=== PATIENT | female | born 1955 | race Caucasian/White ===

== ENCOUNTER 2021-12-23 10:12 | Outpatient (CLI) | payer BC, SELFPAY ==
[2021-12-23 21:34] LABS: Albumin* 4.8 g/dL (3.3-5.0); Chloride* 102 mmol/L (96-114)
[2021-12-23 21:35] LABS: Potassium* 4.1 mmol/L (3.6-5.1); Sodium* 139 mmol/L (135-149)
[2021-12-23 21:37] LABS: Alkaline Phosphatase* 151 U/L (40-150); Aspartate Amino Transferase* 27 U/L (12-35); Bilirubin Total* 0.6 mg/dL (0.1-1.5); Blood Urea Nitrogen* 17 mg/dL (7-30); Calcium* 9.6 mg/dL (8.4-10.6); Carbon Dioxide* 29 mmol/L (20-32); Creatinine* 0.7 mg/dL (0.5-1.5); Estimated Glomerular Filt Rate 96 ml/min; Glucose* 96 mg/dL (60-115); Total Protein* 8.1 g/dL (6.0-8.3); Triglycerides* 280 mg/dL (40-149)
[2021-12-23 21:38] LABS: Alanine Aminotransferase* 30 U/L (4-35); HDL Cholesterol* 80 mg/dL (>=50)
[2021-12-23 21:45] LABS: Vitamin D 25 Hydroxy* 32 ng/mL (30-80)
[2021-12-23 22:03] LABS: Cholesterol* 373 mg/dL (90-199); LDL Cholesterol Calculated 237 mg/dL (<100)
[2021-12-23 22:55] LABS: Free T4 Free Thyroxine* 1.11 ng/dL (0.70-1.85)
== END 2021-12-23 10:13 | disposition home or self-care (01) ==
PROVIDERS: PCP Physician Assistant Medical; Visit Provider Physician Assistant Medical
DX: Z01.419 Encounter for gynecological examination (general) (routine) without abnormal findings (principal); E03.9 Hypothyroidism, unspecified; E55.9 Vitamin D deficiency, unspecified; I10 Essential (primary) hypertension; E78.5 Hyperlipidemia, unspecified
CPT/HCPCS: 80053; 80061; 82306; 84439; 84443

== ENCOUNTER 2022-02-21 17:30 | Emergency (ER) | payer SELFPAY ==
[2022-02-21 17:33] VITALS: BP 139/79; PULSE 75; RESP 18; TEMP 36.4; O2SAT 95; BMI 40.3
--- NOTE | 2022-02-21 17:54 | ED_ITS ---
HPI - General Adult General Date Seen: 02/21/22 Chief complaint: Ear/Nose/Throat Problem Stated complaint: left ear pain Time Seen by Provider: 02/21/22 17:34 Source: patient Mode of arrival: ambulatory Limitations: no limitations History of Present Illness HPI narrative: Patient is a 66-year-old woman who presents with gradually worsening left ear pain for the past several days. She notes some tenderness and difficulty hearing now as well. No drainage. She has not been taking anything for pain. No fevers. No other complaints. Related Data Home Medications Medication Instructions Recorded Confirmed cholecalciferol (vitamin D3) 50 2,000 unit PO .Bedtime 08/27/21 12/23/21 mcg (2,000 unit) tablet clonazepam 0.5 mg tablet 0.25 mg PO PRN 08/27/21 12/23/21 cyclosporine 0.05 % eye drops 1 drp ophthalmic (eye) BID 08/27/21 12/23/21 famotidine 20 mg tablet 20 mg PO .Bedtime 08/27/21 12/23/21 losartan 50 mg tablet 50 mg PO DAILY 08/27/21 12/23/21 Previous Rx's Medication Instructions Recorded celecoxib 200 mg capsule (Celebrex) 200 mg PO QDAY #90 caps 12/02/21 amlodipine 5 mg tablet 5 mg PO QDAY #90 tabs 02/04/22 levothyroxine 200 mcg tablet 200 mcg PO QDAY #90 tabs 02/05/22 sertraline 100 mg tablet 200 mg PO QDAY #180 tabs 02/05/22 rosuvastatin 10 mg tablet 10 mg PO .qhs #90 tabs 02/10/22 Allergies Allergy/AdvReac Type Severity Reaction Status Date / Time NSAIDS (Non-Steroidal Allergy Severe Hx of Verified 12/23/21 10:07 Anti-Inflamma bypass PFSH PFS Medical History Abscess of prepatellar region History of fracture Surgical History History of arthroplasty of right knee History of bilateral breast reduction surgery History of History of section History of cholecystectomy History of colonoscopy History of left hip replacement 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 Family History Father Prostate cancer, Onset Age: 93 Other Stroke Social History Narrative: Not current smoker Smoking Status: Former smoker Do you use any of these nicotine containing products: None Second hand tobacco smoke exposure: No How often do you have a drink containing alcohol: monthly or less How many standard drinks containing alcohol do you have on a typical day: 1 or 2 AUDIT-C Alcohol total score: 1 Non-prescribed substance use: denies use Little interest or pleasure in doing things: not at all Feeling down, depressed, or hopeless: not at all Exam Narrative: Exam Narrative: Vital signs reviewed In general, an alert, nontoxic woman. She looks comfortable. Eyes: Sclera clear. ENT: Nares clear. Bilateral canals are narrow, but there is no evidence of erythema or edema or debris. The right TM is normal. On the left, there is erythema and landmarks are not visualized. Neck: Supple without adenopathy or stridor. Skin: Warm and dry, well perfused Const: Vital Signs, click to edit/add: Vital Signs - 24 hr 02/21/22 17:33 Temperature 97.6 F Pulse Rate [Pulse Oximeter] 75 Respiratory Rate 18 Blood Pressure [Ri ght Upper Arm] 139/79 Pulse Oximetry 95 Oxygen Delivery Me thod Room Air Documenting provider has reviewed patient's vital signs: yes Course Course Hospital Course: Patient tells me she has a history of prior ear problems which her primary doctor has treated with drops, she says they were not antibiotic drops. She looked through her phone to try and figure out what kind of drops were used previously but could not find it. I am not entirely sure what was treated previously but did discuss with her that today I do not see any evidence of otitis externa, it does appear that she has an otitis media on that side. Would recommend treating that with antibiotics as it has been getting worse over the past several days. Anticipate this will improve over the next 24-48 hours. This should improve her tinnitus and hearing as well, but if the symptoms are persistent she should follow up with ENT. For pain, recommend Tylenol in addition to this celecoxib that she takes. She had told me that she could take ibuprofen but given that she is status post gastric bypass I would recommend against that and instead stick with Tylenol. Return at any time for acute worsening such as high fevers, severe uncontrolled pain. Vital Signs Vital signs: Initial Vital Signs Temperature 97.6 F 02/21/22 17:33 Temperature Source Temporal Artery Scan 02/21/22 17:33 Pulse Rate 75 02/21/22 17:33 Respiratory Rate 18 02/21/22 17:33 Blood Pressure 139/79 02/21/22 17:33 Blood Pressure Mean 99 02/21/22 17:33 Blood Pressure Position Sitting 02/21/22 17:33 Pulse Oximetry 95 02/21/22 17:33 Oxygen Delivery Method 02/21/22 17:33 Vital Signs Temperature 97.6 F 02/21/22 17:33 Pulse Rate 75 02/21/22 17:33 Respiratory Rate 18 02/21/22 17:33 Blood Pressure 139/79 02/21/22 17:33 Pulse Oximetry 95 02/21/22 17:33 Oxygen Delivery Method 02/21/22 17:33 Temperature 97.6 F 02/21/22 17:33 Pulse Rate 75 02/21/22 17:33 Respiratory Rate 18 02/21/22 17:33 Blood Pressure 139/79 02/21/22 17:33 Pulse Oximetry 95 02/21/22 17:33 Oxygen Delivery Method 02/21/22 17:33 Discharge Plan Discharge Clinical Impression: Otitis media Patient Disposition: Home, Self-Care Condition: Stable Instructions: Ear Infection (ED) Additional Instructions: Tylenol in addition to your celecoxib; ibuprofen is likely not the best choice status post gastric bypass. Antibiotic as ordered. Anticipate improvement over the next couple of days. See your primary doctor if not improving in 2-3 days. Return at any time for acute worsening. Prescriptions: No Action clonazepam 0.5 mg tablet 0.25 mg PO PRN Rx Instructions: 1/2 to 1 tablet the night prior to procedures. losartan 50 mg tablet 50 mg PO DAILY famotidine 20 mg tablet 20 mg PO .Bedtime cholecalciferol (vitamin D3) 50 mcg (2,000 unit) tablet 2,000 unit PO .Bedtime cyclosporine 0.05 % drops 1 drp ophthalmic (eye) BID celecoxib [Celebrex] 200 mg capsule 200 mg PO QDAY Qty: 90 0RF amlodipine 5 mg tablet 5 mg PO QDAY Qty: 90 3RF sertraline 100 mg tablet 200 mg PO QDAY Qty: 180 1RF levothyroxine 200 mcg tablet 200 mcg PO QDAY Qty: 90 0RF rosuvastatin 10 mg tablet 10 mg PO .qhs Qty: 90 0RF Follow Up/Referrals: Bharati Carey PA-C [Primary Care Provider] - Stand Alone Forms: [employer] Info Instructions
== END 2022-02-21 18:02 | disposition home or self-care (01) ==
LOC: ED 17:58
PROVIDERS: Emergency Provider Emergency Medicine; PCP Physician Assistant Medical
DX: H66.92 Otitis media, unspecified, left ear (principal)
CPT/HCPCS: 99283; 99284

== ENCOUNTER 2022-05-19 11:07 | Outpatient (CLI) | payer MEDICARE, SELFPAY ==
--- OUTSIDE RECORDS SUMMARY | 2022-05-21 00:32 | XMS_ITS | Continuity of Care Document ---
Author Name Unknown Organization [facility] Address [address] [address] [place] [address] Phone Care Team Providers Care High School Science Teacher Name Role Phone Link Ashok MORTON Unavailable Unavailable Allergies, Adverse Reactions, Alerts Substance Reaction Status Criticality No Known Allergies Active No Inform ation Medications Medication Instructions Dosage Effective Dates (start - stop) Status Comments levothyroxine 25 mcg tablet take 1 tablet by oral route every day 25 MCG - Active sertraline 50 mg tablet take 3 tablet by oral route every day 150 MG - Active Procedures Procedure Date Colonoscopy W/Submucosal Injection Colonoscopy Flex; W/bx 1/mx Level Iv-surg Path Gross/micro 16 Immunocytochemistry, Each Antibody Colonoscopy Flex; W/remov Les- 11 Level Iv-surg Path Gross/micro 11 Advance Directives Directive Yes / No Effective Date File Name No Information Encounters Encounter Description Practice Location Reason(s) For Visit Diagnoses Date Provider Providers Copied on Encounter [facility], [address] [address], [place], [place], [id number], [place] tel:[phone] [facility] No Information 6 Link MD Pulido. [address] [facility], [facility] [address], [place], [place], [id number] , [place]. [phone] Referring Provider: Referral Self. [facility], [address] [address], [facility] [place], [id number], [place] tel:[phone] Brice [facility] Colon polypDiverticulosis of colon without hemorrhageEncounter for screening for malignant neoplasm of colonBenign neoplasm of transverse colonPersonal history of colonic polypsVascular disorder of intestine, unspecifiedVascular disorder of intestine, unspecified 6 Maged Pulido. [address] [facility], [facility] [address], [place], [place], [id number] , [place]. [phone] Referring Provider: [place], [address] [place], [address]. tel:[phone] [facility], [address] [address], [place], [place], [id number], [place] tel:[phone] [place] [facility] Polyp-intes/rect/st om-unc BehColon Cancer ScreeningDiverticul osis Of ColonBenign Neoplasm Lg Bowel Aguilar Cavazos . [address] [facility], [facility] [address], [place], [place], [address] , [place]. [phone] Family History Family Member Type Diagnosis Age At Onset Daughter Problem (finding) Alive and well Brother Problem (finding) Alive and well Sister Problem (finding) Alive and well Father Problem (finding) prostate cancer Mother Problem (finding) Thyroid disorder Son Problem (finding) Alive and well Mother Problem (finding) Lymphoma Payers Payer name Insurance type Covered democrat ID Authoriza tion(s) [employer] [facility] [id number] Social History Type Description Quantity Date Captured Comments Alcohol Use Details Unknown Caffeine Use Details Unknown Tobacco Use Status Smoking Status No Information Sex Female Chief Complaint And Reason For Visit No Information Reason For Referral Reason For Referral No Information Plan Of Treatment Date Type Action Status Referral Ordered: Colonoscopy Appointment date/timeframe: -today ordered History Of Present Illness Encounter Date Complaint History Of Prese nt Illness No Information Functional Status Date Functional Assessmen t No Information Instructions Date Instruction Additional Infor mation High Fiber Diet Related to Diver ticulosis of colon without hemorrhage Diverticulosis/Diverticulitis Re lated to Diverticulosis of colon without hemorrhage Colon Cancer Prevention Related to Diverticulosis of colon without hemorrhage Colon Polyps Related to Diver ticulosis of colon without hemorrhage NSAIDS List Related to Diver ticulosis of colon without hemorrhage Colonoscopy Assessments Type Assessment Date No Information Patient Care Teams Name Effective Dates (start - stop) Status Members No Information
== END 2022-05-19 11:08 | disposition home or self-care (01) ==
LOC: NFLDREF 05-21 00:29
PROVIDERS: PCP Physician Assistant Medical; Referring Provider Physician Assistant Medical; Visit Provider Physician Assistant Medical
DX: E78.2 Mixed hyperlipidemia (principal); E03.9 Hypothyroidism, unspecified
CPT/HCPCS: 80061; 80076; 84443

== ENCOUNTER 2023-06-07 08:15 | Outpatient (CLI) | payer MEDICARE, SELFPAY | END 2023-06-07 08:16 | disposition home or self-care (01) | LOC: NFLDREF 06-08 06:30 | PROVIDERS: PCP Physician Assistant Medical; Referring Provider Physician Assistant Medical; Visit Provider Physician Assistant Medical | DX: E03.9 Hypothyroidism, unspecified (principal); E78.2 Mixed hyperlipidemia; I10 Essential (primary) hypertension | CPT/HCPCS: 80053; 80061; 84443 ==

== ENCOUNTER 2023-06-18 00:14 | Emergency (ER) | payer MEDICARE, SELFPAY ==
[2023-06-18 00:17] VITALS: BP 157/68; PULSE 79; RESP 18; TEMP 36.7; O2SAT 93; BMI 39.7
[2023-06-18 00:26] VITALS: PULSE 78; O2SAT 94
--- NOTE | 2023-06-18 00:28 | ED_ITS ---
HPI - Dental/Oral General Chief complaint: Dental/Oral/Mouth Injury/Pain Stated complaint: abscessed tooth - L side bottom Time Seen by Provider: 06/18/23 00:28 History of Present Illness HPI Narrative: Patient is a 67-year-old woman who comes in today with severe pain in her premolar on the left lower plate. She has had known history of dental issues and has an appointment with her dentist on Tuesday. The pain and swelling is becoming more severe. She has had no nausea vomiting fevers chills night sweats chest pain shortness a breath orthopnea or PND. Patient is not penicillin allergic. Related Data Home Medications Medication Instructions Recorded Confirmed cholecalciferol (vitamin D3) 50 2,000 unit PO .Bedtime 08/27/21 06/18/23 mcg (2,000 unit) tablet cyclosporine 0.05 % eye drops 1 drp ophthalmic (eye) BID 08/27/21 06/18/23 famotidine 20 mg tablet 20 mg PO .Bedtime 08/27/21 06/18/23 Previous Rx's Medication Instructions Recorded amlodipine 5 mg tablet 5 mg PO QDAY #90 tabs 06/16/23 celecoxib 200 mg capsule 200 mg PO DAILY #90 caps 06/16/23 clonazepam 0.5 mg tablet 0.25 mg (1/2 x 0.5 mg) PO QHS PRN 06/16/23 insomnia #30 tabs levothyroxine 200 mcg tablet 200 mcg PO DAILY #90 tabs 06/16/23 losartan 50 mg tablet 50 mg PO DAILY #90 tabs 06/16/23 rosuvastatin 20 mg tablet 20 mg PO QHS #90 tabs 06/16/23 sertraline 100 mg tablet 200 mg (2 x 100 mg) PO QDAY #180 06/16/23 tabs trazodone 50 mg tablet 50 - 150 mg (1 - 3 x 50 mg) PO QHS 06/16/23 PRN sleep #180 tabs Allergies Allergy/AdvReac Type Severity Reaction Status Date / Time NSAIDS (Non-Steroidal Allergy Severe Hx of Verified 06/18/23 00:21 Anti-Inflamma bypass Review of Systems Status of ROS: Reports: 10 or more systems reviewed and unremarkable except as noted in History and below [facility] Medical History Abscess of prepatellar region ?L02.419 - Cutaneous abscess of limb, unspecified (ICD-10) History of fracture ?Z87.81 - Personal history of (healed) traumatic fracture (ICD-10) Surgical History History of left knee surgery (04/09/20) ?Z98.890 - Other specified postprocedural states (ICD-10) H/O arthroscopy of right knee (08/06/20) ?Z98.890 - Other specified postprocedural states (ICD-10) History of colonoscopy ?Z98.890 - Other specified postprocedural states (ICD-10) History of section ?Z98.891 - History of uterine scar from previous surgery (ICD-10) 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) ?Z96.642 - Presence of left artificial hip joint (ICD-10) History of arthroplasty of right knee (12/22/20) ?Z96.651 - Presence of right artificial knee joint (ICD-10) History of sleeve gastrectomy ?Z90.3 - Acquired absence of stomach [part of] (ICD-10) History of bilateral breast reduction surgery ?Z98.890 - Other specified postprocedural states (ICD-10) History of cholecystectomy ?Z90.49 - Acquired absence of other specified parts of digestive tract (ICD- 10) Family History Father Prostate cancer, Onset Age: 93 Other Stroke Social History Narrative: Not current smoker What is your current living situation?: I presently have a place to live Problems where you live: no known problems In the past 12 months, utilities in danger of being shut off: no In past 12 months, lack of transportation kept you from medical appts, meetings, work, or getting things needed for daily living: no In the past 12 mos, have been you worried that your food would run out before you had money to buy more?: never true In the past 12 mos, the food you bought just didn't last and you didn't have money to buy more?: never true Smoking Status: Former smoker Do you use any of these nicotine containing products: None Second hand tobacco smoke exposure: No How often do you have a drink containing alcohol: never AUDIT-C Alcohol total score: 0 Non-prescribed substance use: denies use How often does anyone, including family, friends and others, physically hurt you : never How often does anyone, including family, friends and others, insult or talk down to you: never How often does anyone, including family, friends and others, threaten you with harm: never How often does anyone, including family, friends and others, scream or curse at you: never Little interest or pleasure in doing things: several days Feeling down, depressed, or hopeless: several days Exam Narrative: Exam Narrative: EXAM GENERAL: Patient appears comfortable and well. Mildly limited dentition. EYES: No scleral icterus. ENT: Tympanic membranes and oropharynx normal. THYROID: no thyroid nodules or thyromegaly. LYMPH: No supraclavicular or cervical lymphadenopathy. SKIN: Visible skin seen during exam normal or with benign process only. EXT: No dependent lower extremity pedal edema. HEART: Regular rate and rhythm with no murmurs, rubs, or gallops. LUNGS: Clear to auscultation bilaterally with no crackles or wheezes. ABD: Soft, non tender, non distended. PSYCH: Good eye contact, speech is not pressured. Const: Vital Signs, click to edit/add: Vital Signs - 24 hr 06/18/23 00:17 Temperature 98.1 F Pulse Rate [Pulse Oximeter] 79 Respiratory Rate 18 Blood Pressure [Le ft Upper Arm] 157/68 H Pulse Oximetry 93 Oxygen Delivery Me thod Room Air Course Course ED Course: Patient seen and examined. Vital Signs Vital signs: Initial Vital Signs Temperature 98.1 F 06/18/23 00:17 Temperature Source Temporal Artery Scan 06/18/23 00:17 Pulse Rate 79 06/18/23 00:17 Respiratory Rate 18 06/18/23 00:17 Blood Pressure 157/68 H 06/18/23 00:17 Blood Pressure Mean 97 06/18/23 00:17 Blood Pressure Position Sitting 06/18/23 00:17 Pulse Oximetry 93 06/18/23 00:17 Oxygen Delivery Method Room Air 06/18/23 00:17 Vital Signs Temperature 98.1 F 06/18/23 00:17 Pulse Rate 79 06/18/23 00:17 Respiratory Rate 18 06/18/23 00:17 Blood Pressure 157/68 H 06/18/23 00:17 Pulse Oximetry 93 06/18/23 00:17 Oxygen Delivery Method Room Air 06/18/23 00:17 Temperature 98.1 F 06/18/23 00:17 Pulse Rate 79 06/18/23 00:17 Respiratory Rate 18 06/18/23 00:17 Blood Pressure 157/68 H 06/18/23 00:17 Pulse Oximetry 93 06/18/23 00:17 Oxygen Delivery Method Room Air 06/18/23 00:17 MDM - Dental/Oral MDM Narrative Medical decision making narrative: Patient is a 67-year-old woman comes in with dental pain and swelling around the premolar on the left lower plate. She has what appears to be dental infection and does have does appointment on Tuesday 2 days. I did treated with amoxicillin verify there tetanus shot is up-to-date. She will continue current medications follow-up with her primary physician as needed. She will Also see her dentist on Tuesday. Discharge Plan Discharge Clinical Impression: Pain, dental Patient Disposition: Home, Self-Care Condition: Stable Instructions: Toothache (ED) Additional Instructions: Amoxicillin as directed Tylenol Motrin Rest Fluids Follow-up with your dentist as described. Activity Level: No Restrictions Discharge Diet: Regular Prescriptions: No Action levothyroxine 200 mcg tablet 200 mcg PO DAILY Qty: 90 3RF losartan 50 mg tablet 50 mg PO DAILY Qty: 90 3RF sertraline 100 mg tablet 200 mg PO QDAY Qty: 180 3RF trazodone 50 mg tablet 50 - 150 mg PO QHS PRN (Reason: sleep) Qty: 180 1RF amlodipine 5 mg tablet 5 mg PO QDAY Qty: 90 3RF clonazepam 0.5 mg tablet 0.25 mg PO QHS PRN (Reason: insomnia) Qty: 30 0RF celecoxib 200 mg capsule 200 mg PO DAILY Qty: 90 3RF rosuvastatin 20 mg tablet 20 mg PO QHS Qty: 90 3RF famotidine 20 mg tablet 20 mg PO .Bedtime cholecalciferol (vitamin D3) 50 mcg (2,000 unit) tablet 2,000 unit PO .Bedtime cyclosporine 0.05 % drops 1 drp ophthalmic (eye) BID Follow Up/Referrals: Bharati Carey PA-C [Primary Care Provider] - Stand Alone Forms: [employer] Info Instructions
[2023-06-18 00:30] VITALS: PULSE 76; O2SAT 93
[2023-06-18 00:32] VITALS: BP 138/82; RESP 18
--- OUTSIDE RECORDS SUMMARY | 2023-06-18 00:35 | XMS_ITS | Clinical Summary ---
Author Name Unknown Organization [facility] Address [address] [address] Phone Care Team Providers Care Sheeting Puller Name Role Phone Unavailable Primary Care Provider Unavailabl e Allergies No known active allergies Medications Medication Sig Dispensed Refills Start Date End Date Status amLODIPine (Norvasc) 5 MG tablet Take 5 mg by mouth one time a day. 09/26/2022 Active calcium carbonate (Calcium 600) 600 MG tablet Take by mouth. Active Cholecalciferol 50 MCG (2000 UT) capsule Take by mouth. Active clonazePAM (KlonoPIN) 0.5 MG tablet TAKE 0.5 TABS BY MOUTH EVERY DAY AT BEDTIME NEEDED FOR INSOMNIA 09/27/2022 Active levothyroxine (Synthroid) 200 MCG tablet Take 200 mcg by mouth one time a day. 06/29/2022 Active losartan (Cozaar) 50 MG tablet Take 50 mg by mouth one time a day. 09/26/2022 Active sertraline (Zoloft) 100 MG tablet Take 200 mg by mouth one time a day. 09/26/2022 Active clonazePAM (KlonoPIN) 1 MG tablet Take 1 Tablet by mouth three times a day as needed. Active levothyroxine (Synthroid) 200 MCG tablet Take by mouth. Active sertraline (Zoloft) 100 MG tablet Take 1.5 Tablets by mouth one time a day. Active ibuprofen (Motrin) 800 MG tablet Take 1 Tablet by mouth every eight hours as needed for Pain. Administer with food. 40 Tablet 10/29/2022 Active Active Problems No known active problems Surgical History Surgery Date Site/Laterality Comments CHOLECYSTECTOMY FOOT SURGERY BREAST REDUCTION SURGERY SECTION Description: x 2 Medical History Medical History Date Comments History of hyperthyroidism 10/29/2015 Annot ation - [id number]: Radioactive Iodine Family History Medical History Relation Comments Myocardial Infarction Father [employer] TW Hypertension Mother [employer] TW Stroke Mother [employer] TW Hypertension Sister 1 RV [employer] TW Musculo-skeletal Disease Sister 2 RV [employer]s TW - Problem: Family history of Joint problem Relation Status Comments Father Mother Sister 1 Sister 2 Social History Tobacco Use Types Packs/Day Years Used Date Smoking Tobacco: Former Smokeless Tobacco: Never Tobacco Cessation:Counseling Given: Not Answered Alcohol Use Standard Drinks/Week Comments Never 0 (1 standard drink = 0.6 oz pur e alcohol) Sex and Gender Information Value Date Recorded Sex Assigned at Not on file Gender Identity Not on file Sexual Orientation Not on file Job Start Date Occupation Industry Not on file Not on file Not on file Obstetrics History Last Filed Vital Signs Vital Sign Reading Time Taken Comments Blood Pressure 132/84 10/29/2022 3:34 PM CDT Pulse 67 10/29/2022 3:34 PM CDT Temperature 36.4 ??C (97.6 ??F) 10/29/2022 3:34 PM CD T Respiratory Rate 18 10/29/2022 3:34 PM CDT Oxygen Saturation 93% 10/29/2022 3:34 PM CDT Inhaled Oxygen Concentration - - Weight 104.3 kg (230 lb) 10/29/2022 3:34 PM CDT Height 160 cm (5' 3) 10/30/2015 12:38 PM CDT Body Mass Index 40.74 10/30/2015 12:38 PM CDT Plan of Treatment Health Maintenance Due Date Last Done Comments CT Colonography 1955 Cologuard 1955 Colonoscopy 1955 Colorectal Cancer Screening 1955 FIT/FOBT 1955 MAMMO,SCREEN 1956 Sigmoidoscopy 1955 PERTUSSIS (Standing Order) 12/22/1975 TETANUS (Standing Order) 12/22/1975 Shingrix (Zoster recombinant ) vaccine (Standing Order) (1 of 2) 2006 RSV Vaccination (60+ yrs) (Abrysvo/Arexvy) (1 - 1-dose 60+ series) 2016 DXA,FEMALES AGE 65 OR GREATER 2021 Pneumococcal Vaccine: 65+ yr s (Standing Order) (1 of 1 - PCV) 2021 COVID-19 Vaccine (2022-2 4 season) 2022 Influenza Vaccine Seasonal (Standing Order) (#1) 2022 HPV Vaccine (Standing Order) Aged Out No longer eligible based on patient's age to complete this topic Hepatitis B Vaccine (Standin g Order) Aged Out No longer eligible b ased on patient's age to complete this topic Gabby Acosta Personal/Family Self 1955 [place] [address]
--- OUTSIDE RECORDS SUMMARY | 2023-06-18 00:36 | XMS_ITS | Encounter Summary ---
Author Name Unknown Organization [facility] Address [address] [place] [address] Care Team Providers Care Centrifugal Spinner Name Role Phone Kathia Forbes MD Primary Care Provider [phone] Benita Boss APRN [facility] Primary Care Provi manuel Monserrat Carey MD Primary Care Provider [phone] Encounter Details Date Type Department Care Team (Late st Contact Info) Description 06/07/2011 MyC Medical Advice [address] [address] Kathia Forbes MD [address] [place] [phone] Social History Tobacco Use Types Packs/Day Years Used Date Smoking Tobacco: Former Cigarettes Q uit: 04/08/2011 Smokeless Tobacco: Never Alcohol Use Standard Drinks/Week Comments No 0 (1 standard drink = 0.6 oz pur e alcohol) Sex and Gender Information Value Date Recorded Sex Assigned at Not on file Gender Identity Not on file Sexual Orientation Not on file documented as of this encounter Plan of Treatment Not on file documented as of this encounter Visit Diagnoses Not on filedocumented in this encounter Care Teams Centrifugal Spinner Relationship Specialty Start Date End Date Kathia Forbes MD PCP - General Family Practice 04/30/10 11/27/13 Benita Boss APRN CNP PCP - General Nurse Practitioner - Family 11/28/13 [address] [place] [address] [place] [address] PCP - General 12/15/17 documented as of this encounter
--- OUTSIDE RECORDS SUMMARY | 2023-06-18 00:36 | XMS_ITS | Encounter Summary ---
Author Name Unknown Organization [place] Address [address] [place] [address] Care Team Providers Care Fish Rod Maker Name Role Phone Kathia Forbes MD Primary Care Provider [phone] Benita Boss APRN [facility] Primary Care Provi manuel Monserrat Carey MD Primary Care Provider [phone] Encounter Details Date Type Department Care Team (Late st Contact Info) Description 12/22/2010 MyC Medical Advice [address] [address] Kathia Forbes MD [address] [place] [address] [phone] Social History Tobacco Use Types Packs/Day Years Used Date Smoking Tobacco: Some Days Cigarettes Smokeless Tobacco: Never Alcohol Use Standard Drinks/Week [...] on filedocumented in this encounter Care Teams Fish Rod Maker Relationship Specialty Start Date End Date Kathia Forbes MD PCP - General Family Practice 04/30/10 11/27/13 Benita Boss APRN [facility] PCP - General Nurse Practitioner - Family 11/28/13 1 [place] [address] [place] [address] PCP - General 12/15/17 documented as of this encounter
--- OUTSIDE RECORDS SUMMARY | 2023-06-18 00:36 | XMS_ITS | Encounter Summary ---
Author Name Unknown Organization [place] Address [address] [place] [address] Care Team Providers Care Loan Underwriter Name Role Phone Kathia Forbes MD Primary Care Provider [phone] Benita Boss APRN [facility] Primary Care Provi manuel Monserrat Carey MD Primary Care Provider [phone] Reason for Visit * Reason Onset Date Comments MyChart Communication 04/23/2012 Re: Synthr oid 150 mcg Encounter Details Date Type Department Care Team (Latest Contact Info) Description 04/23/2012 MyC Medical Advice [address] [address] Kathia Forbes MD [address] [place] [address] MyChart Communication (Re: Synthroid 150 mcg) Social History Tobacco Use Types Packs/Day Years [...] on filedocumented in this encounter Care Teams Loan Underwriter Relationship Specialty Start Date End Date Kathia Forbes MD PCP - General Family Practice 04/30/10 11/27/13 Benita Boss APRN PRODUCT DISTRIBUTION SPECIALIST PCP - General Nurse Practitioner - Family 11/28/13 1 [place] [address] [place] [address] PCP - General 12/15/17 documented as of this encounter
--- OUTSIDE RECORDS SUMMARY | 2023-06-18 00:36 | XMS_ITS | Encounter Summary ---
Author Name Unknown Organization [place] Address [facility] [place] [address] Care Team Providers Care Household Worker Name Role Phone Kathia Forbes MD Primary Care Provider [phone] Benita Boss APRN [facility] Primary Care Provi manuel Monserrat Carey MD Primary Care Provider [phone] Reason for Visit * Reason Onset Date Comments MyChart Communication 11/06/2012 Encounter Details Date Type Department Care Team (Latest Contact Info) Description 11/06/2012 MyC Medical Advice [address] [address] Kathia Forbes MD [address] [place] [address] MyChart Communication Social History Tobacco Use Types Packs/Day Years [...] on filedocumented in this encounter Care Teams Household Worker Relationship Specialty Start Date End Date Kathia Forbes MD PCP - General Family Practice 04/30/10 11/27/13 Benita Boss APRN CNP PCP - General Nurse Practitioner - Family 11/28/13 1 [place] [address] [place] [address] PCP - General 12/15/17 documented as of this encounter
--- OUTSIDE RECORDS SUMMARY | 2023-06-18 00:36 | XMS_ITS | Encounter Summary ---
Author Name Unknown Organization [place] Address [address] [place] [address] Care Team Providers Care Needle Valve Operator Name Role Phone Benita Boss APRN, CNP Primary Care Provi manuel Monserrat Carey MD Primary Care Provider [phone] Encounter Details Date Type Department Care Team (Late st Contact Info) Description 06/26/2015 MyC Medical Advice [address] [address] Shayy Powers APRN [facility] [address] [address] [place] [address] Social History Tobacco Use Types Packs/Day Years Used Date Smoking Tobacco: Former Cigarettes 0.8 38 0 09/11/1974 - 09/11/2012 Smokeless Tobacco: Never Alcohol Use Standard Drinks/Week [...] Diagnoses Not on filedocumented in this encounter Additional Health Concerns Assessment Noted Time PHQ-9 Depression Total Score: 1 06/28/19 16 7:17 AM CDT documented as of this encounter Care Teams Needle Valve Operator Relationship Specialty Start Date End Date Benita Boss APRN [facility] PCP - General Nurse Practitioner - Family 11/28/13 1 [place] [address] [place] [address] PCP - General 12/15/17 documented as of this encounter
--- OUTSIDE RECORDS SUMMARY | 2023-06-18 00:36 | XMS_ITS | Encounter Summary ---
Author Name Unknown Organization [place] Address [address] [place] [address] Care Team Providers Care Artificial Breast Fabricator Name Role Phone Kathia Forbes MD Primary Care Provider [phone] Benita Boss APRN [facility] Primary Care Provi manuel Monserrat Carey MD Primary Care Provider [phone] Encounter Details Date Type Department Care Team (Late st Contact Info) Description 06/07/2012 MyC Medical Advice [address] [address] Kathia Forbes MD [address] [place] [address] [phone] Social History Tobacco Use Types Packs/Day Years [...] on filedocumented in this encounter Care Teams Artificial Breast Fabricator Relationship Specialty Start Date End Date Kathia Forbes MD PCP - General Family Practice 04/30/10 11/27/13 Benita Boss APRN CNP PCP - General Nurse Practitioner - Family 11/28/13 1 [place] [address] [place] [address] PCP - General 12/15/17 documented as of this encounter
--- OUTSIDE RECORDS SUMMARY | 2023-06-18 00:36 | XMS_ITS | Encounter Summary ---
Author Name Unknown Organization [place] Address [address] [place] [address] Care Team Providers Care Copy Center Associate Name Role Phone Kathia Forbes MD Primary Care Provider [phone] Benita Boss APRN [facility] Primary Care Provi manuel Monserrat Carey MD Primary Care Provider [phone] Encounter Details Date Type Department Care Team (Late st Contact Info) Description 12/02/2010 MyC Medical Advice [address] [address] Kathia Forbes MD [address] [place] [address] [phone] Social History Tobacco Use Types Packs/Day Years [...] on filedocumented in this encounter Care Teams Copy Center Associate Relationship Specialty Start Date End Date Kathia Forbes MD PCP - General Family Practice 04/30/10 11/27/13 Benita Boss APRN [facility] PCP - General Nurse Practitioner - Family 11/28/13 1 [place] [address] [place] [address] PCP - General 12/15/17 documented as of this encounter
--- OUTSIDE RECORDS SUMMARY | 2023-06-18 00:36 | XMS_ITS | Clinical Summary ---
Author Name Unknown Organization [facility] Address [address] [place] [address] Care Team Providers Care Sealer Operator Name Role Phone Unassigned, Provider Primary Care Provider Unava ilable Source Comments You are receiving this document as you are listed as the primary care provider,follow-up provider, or the patient has been referred to you for consultation.This is in compliance with the Medicare andThe [facility] EHR Incentive Program,which states Providers who transition their patient to another setting of careor provider of care or refers their patient to another provider of care shouldprovide summary care record for each transition of care or referral. [facility] Allergies No known active allergies Medications Medication Sig Dispensed Refills Start Date End Date Status levothyroxine (SYNTHROID) 25 MCG tablet Take 1 tablet by mouth daily (every 24 hours). 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 Start 2 days before malarial mosquito exposure, daily while there, and continue for 7 days after leaving. 17 Tablet 01/26/2019 Active azithromycin (ZITHROMAX) 500 MG tabletIndications :Counseling for travel Take 1 tab daily for 3 days as needed for severe travelers diarrhea. 3 Tablet 01/26/2019 Active Immunizations Name Administration Dates Next Due Chicken Pox - History of Illness 1966 Flu Vac (3+ yrs) 11/27/2010,04/29/2010 Flu Vac Preserv Free (3+yrs) 01/14/2009 HepA Adult (19+ yrs) 01/26/2019 Influenza IIV3 (Trivalent) F jo ann Highdose, 65+ Yrs (76663) 01/26/2019 Influenza IIV4 (Quadrivalent ) 0.5mL (04051) 12/31/2016,02/10/2016,12/31/2014, 013 MCV4 Eugenia 2m.+ (two vial) 01/26/2019 PPSV23 (Pneumovax) 08/31/2011,01/14/2009 Tdap 04/29/2010 Typhoid (Typhim Vi, IM) 01/26/2019 YF (Yellow Fever) 01/26/2019 Zoster (Zostavax) 05/28/2011 Social History Tobacco Use Types Packs/Day Years Used Date Smoking Tobacco: Never Assessed Sex and Gender Information Value Date Recorded Sex Assigned at Not on file Gender Identity Not on file Sexual Orientation Not on file Plan of Treatment Health Maintenance Due Date Last Done Comments Colon Cancer Screening Plan Due 1955 Hep C Screening (Preventive Services) 1955 Mammogram 1955 Adult Preventive Visit 1974 Cholesterol 2001 Zoster/Shingles (2 of 3) 07/23/2011 05/28/2011 MCV4 (2 - Risk start 2-23 months series) 04/20/2019 01/26/2019 HepA (2 of 2 - Risk 2-dose series) 07/28/2019 01/26/2019 DTaP/Tdap/Td (2 - Tdap) 04/29/2020 04/29/2010 Pneumococcal 65+ Yrs (2 - PCV) 2021 08/31/2011, 01/14/2009 COVID-19 Vaccine (3 - 2022- season) 2022 06/21/2020, 05/31/2020 Influenza (Season Ended) 2023 020, 01/26/2019, 12/31/2016, Additional history exists HepB Aged Out No longer eligi ble based on patient's age to complete this topic Hib Aged Out No longer eligi ble based on patient's age to complete this topic IPV (Polio) Aged Out No longer eligi ble based on patient's age to complete this topic Care Teams Sealer Operator Relationship Specialty Start Date End Date Unassigned, Provider [address] [place] [address] PCP - General 07/26/00
--- OUTSIDE RECORDS SUMMARY | 2023-06-18 00:36 | XMS_ITS | Encounter Summary ---
Author Name Unknown Organization [place] Address [address] [place] [address] Care Team Providers Care Commercial Lines Account Assistant Name Role Phone Kathia Forbes MD Primary Care Provider [phone] Benita Boss APRN [facility] Primary Care Provi manuel Monserrat Carey MD Primary Care Provider [phone] Encounter Details Date Type Department Care Team (Late st Contact Info) Description 10/25/2012 MyC Medical Advice [address] [address] Kathia Forbes MD [address] [place] [address] [phone] Social History Tobacco Use Types Packs/Day Years [...] on filedocumented in this encounter Care Teams Commercial Lines Account Assistant Relationship Specialty Start Date End Date Kathia Forbes MD PCP - General Family Practice 04/30/10 11/27/13 Benita Boss APRN CNP PCP - General Nurse Practitioner - Family 11/28/13 1 [place] [address] [place] [address] PCP - General 12/15/17 documented as of this encounter
--- OUTSIDE RECORDS SUMMARY | 2023-06-18 00:36 | XMS_ITS | Encounter Summary ---
Author Name Unknown Organization [place] Address [facility] [place] [address] Care Team Providers Care Button Tacker Name Role Phone Kathia Forbes MD Primary Care Provider [phone] Benita Boss APRN [facility] Primary Care Provi manuel Monserrat Carey MD Primary Care Provider [phone] Reason for Visit * Reason Onset Date Comments MyChart Communication 05/05/2011 TSH Encounter Details Date Type Department Care Team (Latest Contact Info) Description 05/05/2011 MyC Medical Advice [address] [address] Kathia Forbes MD [address] [place] [phone] MyChart Communication (TSH) Social History Tobacco Use Types Packs/Day Years [...] on filedocumented in this encounter Care Teams Button Tacker Relationship Specialty Start Date End Date Kathia Forbes MD PCP - General Family Practice 04/30/10 11/27/13 Benita Boss APRN CNP PCP - General Nurse Practitioner - Family 11/28/13 1 [place] [address] [place] [address] PCP - General 12/15/17 documented as of this encounter
--- OUTSIDE RECORDS SUMMARY | 2023-06-18 00:36 | XMS_ITS | Encounter Summary ---
Author Name Unknown Organization [place] Address [address] [place] [address] Care Team Providers Care Volcanology Teacher Name Role Phone Monserrat Carye MD Primary Care Provider [phone] Encounter Details Date Type Department Care Team (Late st Contact Info) Description 02/16/2016 MyC Medical Advice [facility] [address] [place] [address] Shayy Powers, MOVIE SHOT CAMERAMAN INTELLECTUAL PROPERTY PARALEGAL [address] [place] [address] [address] [place], [place] [phone] Social History Tobacco Use Types Packs/Day Years [...] documented as of this encounter Care Teams Volcanology Teacher Relationship Specialty [place] [address] [place] [address] PCP - General 12/15/17 documented as of this encounter
--- OUTSIDE RECORDS SUMMARY | 2023-06-18 00:36 | XMS_ITS | Encounter Summary ---
Author Name Unknown Organization [place] Address [address] [place] [address] Care Team Providers Care Compliance Field Technician Name Role Phone Kathia Forbes MD Primary Care Provider [phone] Benita Boss APRN [facility] Primary Care Provi manuel Monserrat Carey MD Primary Care Provider [phone] Encounter Details Date Type Department Care Team (Late st Contact Info) Description 06/07/2012 MyC Medical Advice [address] [address] Kathia Forbes MD [address] [place] [address] [phone] Social History Tobacco Use Types Packs/Day Years [...] on filedocumented in this encounter Care Teams Compliance Field Technician Relationship Specialty Start Date End Date Kathia Forbes MD PCP - General Family Practice 04/30/10 11/27/13 Benita Boss APRN CNP PCP - General Nurse Practitioner - Family 11/28/13 1 [place] [address] [place] [address] PCP - General 12/15/17 documented as of this encounter
--- OUTSIDE RECORDS SUMMARY | 2023-06-18 00:36 | XMS_ITS | Encounter Summary ---
Author Name Unknown Organization [place] Address [address] [place] [address] Care Team Providers Care Intelligence Group Supervisor Name Role Phone Kathia Forbes MD Primary Care Provider [phone] Benita Boss APRN [facility] Primary Care Provi manuel Monserrat Carey MD Primary Care Provider [phone] Encounter Details Date Type Department Care Team (Late st Contact Info) Description 12/03/2010 MyC Medical Advice [address] [address] Kathia Forbes MD [address] [place] [address] [phone] Social History Tobacco Use Types Packs/Day Years [...] on filedocumented in this encounter Care Teams Intelligence Group Supervisor Relationship Specialty Start Date End Date Kathia Forbes MD PCP - General Family Practice 04/30/10 11/27/13 Benita Boss APRN [facility] PCP - General Nurse Practitioner - Family 11/28/13 1 [place] [address] [place] [address] PCP - General 12/15/17 documented as of this encounter
--- OUTSIDE RECORDS SUMMARY | 2023-06-18 00:36 | XMS_ITS | Encounter Summary ---
Author Name Unknown Organization [place] Address [address] [place] [address] Care Team Providers Care Motor Tune Up Specialist Name Role Phone Monserrat Carey MD Primary Care Provider [phone] Encounter Details Date Type Department Care Team (Late st Contact Info) Description 12/02/2015 MyC Medical Advice [facility] [address] [place] [address] Shayy Powers, DIRECTOR REGULATORY COMPLIANCE PRESSER HAND [address] [place] [address] [address] [place], [place] 975[address] Social History Tobacco Use Types Packs/Day Years [...] documented as of this encounter Care Teams Motor Tune Up Specialist Relationship Specialty [place] [address] [place] [address] PCP - General 12/15/17 documented as of this encounter
--- OUTSIDE RECORDS SUMMARY | 2023-06-18 00:36 | XMS_ITS | Continuity of Care Document ---
Author Name Unknown Organization [facility] Address [address] [address] [place] [address] Phone Care Team Providers Care Chemistry Intern Name Role Phone Link Ashok MORTON Unavailable [...] Diagnoses Date Provider Providers Copied on Encounter [facility]ENN, [address] [address], [place], [id number], [place] tel:[phone] [facility] No Information 6 Link MD Pul[place]. [address] [facility] [address], [facility] [place] [place], [id number] , [place]. [phone] Referring Provider: Referral Self, USE FOR SELF REFERRALS. [facility], [address] [address], [place], [id number], [place] tel:[phone] [facility] Colon polypDiverticulosis of colon without hemorrhageEncounter for screening for malignant neoplasm of colonBenign neoplasm of transverse colonPersonal history of colonic polypsVascular disorder of intestine, unspecifiedVascular disorder of intestine, unspecified 6 Maged [place]. [address] [facility] [address], [place], [place], [id number] , [place]. [phone] Referring Provider: [place], [address] [place], [address]. tel:[phone] [facility], [address] [address], [place], [place], [id number], [place] tel:[phone] [facility] Polyp-intes/rect/st om-unc BehColon Cancer ScreeningDiverticul osis Of ColonBenign Neoplasm Lg Bowel Aguilar Cavazos . [address] [facility], [facility] [address], [place], [place], [id number] , [place]. [phone] Family History Family Member Type Diagnosis Age At Onset Daughter Problem (finding) Alive and well Brother Problem (finding) Alive and well Sister Problem (finding) Alive and well Father Problem (finding) prostate cancer Mother Problem (finding) Thyroid disorder Son Problem (finding) Alive and well Mother Problem (finding) Lymphoma Payers Payer name Insurance type Covered republican ID Authoriza tion(s) [employer] Of [facility] [id number] Social History Type Description Quantity Date Captured [...]
--- OUTSIDE RECORDS SUMMARY | 2023-06-18 00:36 | XMS_ITS | Encounter Summary ---
Author Name Unknown Organization [place] Address [facility] [place] [address] Care Team Providers Care Adaptive Physical Education Specialist Name Role Phone Benita Boss APRN, CNP Primary Care Provi manuel Monserrat Carey MD Primary Care Provider [phone] Encounter Details Date Type Department Care Team (Late st Contact Info) Description 05/16/2014 MyC Medical Advice [address] [address] Benita Boss APRN DANDY OPERATOR [address] [place] [address] Social History Tobacco Use Types Packs/Day Years [...] on filedocumented in this encounter Care Teams Adaptive Physical Education Specialist Relationship Specialty Start Date End Date Benita Boss APRN DANDY OPERATOR PCP - General Nurse Practitioner - Family 11/28/13 1 [place] [address] [place] [address] PCP - General 12/15/17 documented as of this encounter
--- OUTSIDE RECORDS SUMMARY | 2023-06-18 00:36 | XMS_ITS | Encounter Summary ---
Author Name Unknown Organization [place] Address [facility] [place] [address] Care Team Providers Care Director Dermatology Name Role Phone Benita Boss APRN WATERSHED COORDINATOR Primary Care Provi manuel Monserrat Carey MD Primary Care Provider [phone] Reason for Visit * Reason Onset Date Comments Refill Request 02/26/2015 Ambien Encounter Details Date Type Department Care Team (Late st Contact Info) Description 02/26/2015 MyC Refill [address] [address] Benita Boss APRN WATERSHED COORDINATOR [address] [place], [place] [phone] Refill Request (Ambien) Social History Tobacco Use Types Packs/Day Years [...] on file documented as of this encounter Miscellaneous Notes * Telephone Encounter - Bebe Elizondo - 02/26/2015 1:39 PM CST Pending Prescriptions: Disp Refills zolpidem (AMBIEN) 5 MG tablet 45 tab*3 Sig: Take 0.5 tablets (2.5 mg) by mouth nightly as needed for sleep Last Written Prescription Date: 11/14/2014 Last Fill Quantity: 45, # refills: 3 Last Office Visit with [facility] primary care provider: 12/31/2014 Future Office visit: Routing refill request to provider for review/approval because: Drug not on the [facility] refill protocol or controlled substance STRIAL TRACTOR DRIVER * Telephone Encounter - Bebe Elizondo - 02/26/2015 1:38 PM CSTMessage [facility] Original authorizing provider: BRI Ramírez CNP would like a refill of the following medications: zolpidem (AMBIEN) 5 MG tablet [Benita Boss APRN CNP] Preferred pharmacy: [id number] - [facility] [address] Comment: STRIAL TRACTOR DRIVER documented in this encounter Plan of Treatment Not on file documented as of this encounter Visit Diagnoses Diagnosis Persistent disorder of initiating or maintaining sleep documented in this encounter Additional Health Concerns Assessment Noted Time PHQ-9 Depression Total Score: 12 015 7:28 AM INDUSTRIAL TRACTOR DRIVER documented as of this encounter Care Teams Director Dermatology Relationship Specialty Start Date End Date Benita Boss APRN CNP PCP - General Nurse Practitioner - Family 11/28/13 1 [place] [address] [place] [address] PCP - General 12/15/17 documented as of this encounter
--- OUTSIDE RECORDS SUMMARY | 2023-06-18 00:36 | XMS_ITS | Encounter Summary ---
Author Name Unknown Organization [place] Address On license of [facility] [place] [place] [address] Care Team Providers Care Podiatry Doctor Name Role Phone Kathia Forbes MD Primary Care Provider [phone] Benita Boss APRN [facility] Primary Care Provi manuel Monserrat Carey MD Primary Care Provider [phone] Reason for Visit * Reason Onset Date Comments MyChart Communication 11/19/2013 Encounter Details Date Type Department Care Team (Latest Contact Info) Description 11/19/2013 MyC Medical Advice [address] [address] Kathia Forbes MD [address] [place] [address] MyChart Communication Social History Tobacco Use [...] encounter Miscellaneous Notes * Telephone Encounter - Benita Boss NP - 11/19/2013 2:38 PM CDT I have put in a screening lab, she can stop by the clinic to get that drawn. She should continue toeat gluten in her diet or she may get a false negative result. If that is positive next step is a GI referral and biopsy to confirm diagnosis. Benita Ulloa documented in this encounter Plan of Treatment Not on file documented as of this encounter Visit Diagnoses Not on filedocumented in this encounter Care Teams Podiatry Doctor Relationship Specialty Start Date End Date Kathia Forbes MD PCP - General Family Practice 04/30/10 11/27/13 Benita Boss APRN [facility]INNA[facility] GRINDER PCP - General Nurse Practitioner - Family 11/28/13 1 [place] [address] [place] [address] PCP - General 12/15/17 documented as of this encounter
--- OUTSIDE RECORDS SUMMARY | 2023-06-18 00:36 | XMS_ITS | Continuity of Care Document ---
Author Name Unknown Organization [facility] Address [address] [place] [address] Phone Care Team Providers Care Manager Park Name Role Phone Marek MORTON, PhD, Hari Unavailable Unavai lable Allergies, Adverse Reactions, Alerts Substance Reaction Status Criticality No Known Allergies Active No Inform ation Medications Medication Instructions Dosage Effective Dates (start - stop) Status Comments SYNTHROID (unknown strength) Not Available - Active Procedures Procedure Date Office/Outpatient Visit,[facility] 2016 Advance Directives Directive Yes / No Effective Date File Name No Information Encounters Encounter Description Practice Location Reason(s) For Visit Diagnoses Date Provider Providers Copied on Encounter Office/Outpati ent Visit,[facility], [place] [facility], [address], [place], [place], [id number], [place] tel:[phone] [facility] [place] Pain in lt hip Marek Noriega. [facility], [address] [place] [address] [address], [place], [address], [place]. tel:[phone] [facility] [address] [place], [address]. tel:[phone] [facility], [address], [place], [place], [id number], [place] tel:[phone] [facility] Low back pain Joseph Mario. [facility], [address] [place] [address], [facility] [address], [place], [place], [id number], . tel:[phone] Family History Family Member Type Diagnosis Age At Onset No Information Payers Payer name Insurance type Covered republican ID Melba donato(s) [facility] [id number] Social History Type Description Quantity Date Captured Comments Alcohol Use Details Unknown Caffeine Use Details Unknown Tobacco Use Status Smoking Status Former smoker Non-Smoking Tobacco Use Details : No Details Available : No Details Available Sex Female Vital Signs Date / Time: Height Weight BMI Pulse Rate Blood Pressure Temperature Respiratory Rate Body Surface Area Head Circumference Head Circ. Percentile Wt./Kvng. Percentile BMI percentile Pulse Ox Inhaled Ox 8:26 AM 62.50 in 80.558 kg (177.60 lbs) 31.9 7 kg/m eter (2) 67 /min 114/71 mm[Hg] Chief Complaint And Reason For Visit No Information Reason For Referral Reason For Referral No Information History Of Present Illness Encounter Date Complaint History Of Prese nt Illness No Information Functional Status Date Functional Assessmen t No Information Instructions Date Instruction Additional Infor mation Weight Management Education Rela darwin to Overweight Weight management: I nstructed to return to General Practitioner timeframe: 1 Month. Related to Overweight Assessments Type Assessment Date assessment Pain in lt hip Patient Care Teams Name Effective Dates (start - stop) Status Members No Information
--- OUTSIDE RECORDS SUMMARY | 2023-06-18 00:36 | XMS_ITS | Encounter Summary ---
Author Name Unknown Organization [facility] Address [address] [place] [address] Care Team Providers Care Quality Control Supervisor Name Role Phone Kathia Forbes MD Primary Care Provider [phone] Benita Boss APRN [facility] Primary Care Provi manuel Monserrat Carey MD Primary Care Provider [phone] Encounter Details Date Type Department Care Team (Late st Contact Info) Description 12/02/2010 [facility] Medical Advice [address] [address] Kathia Forbes MD [address] [place] [id number] Social History Tobacco Use Types Packs/Day Years [...] on filedocumented in this encounter Care Teams Quality Control Supervisor Relationship Specialty Start Date End Date Kathia Forbes MD PCP - General Family Practice 04/30/10 11/27/13 Benita Boss APRN [facility] PCP - General Nurse Practitioner - Family 11/28/13 1 [place] [address] [place] [address] PCP - General 12/15/17 documented as of this encounter
--- OUTSIDE RECORDS SUMMARY | 2023-06-18 00:36 | XMS_ITS | Encounter Summary ---
Author Name Unknown Organization [facility] Address [address] [place] [address] Care Team Providers Care Biomass Boiler Operator Name Role Phone Kathia Forbes MD Primary Care Provider [phone] Benita Boss APRN [facility] Primary Care Provi manuel Monserrat Carey MD Primary Care Provider [phone] Encounter Details Date Type Department Care Team (Late st Contact Info) Description 06/14/2011 [facility] [address] [address] [facility] Social History Tobacco Use Types Packs/Day Years [...] on filedocumented in this encounter Care Teams Biomass Boiler Operator Relationship Specialty Start Date End Date Kathia Forbes MD PCP - General Family Practice 04/30/10 11/27/13 Benita Boss APRN CNP PCP - General Nurse Practitioner - Family 11/28/13 1 [place] [address] [place] [address] PCP - General 12/15/17 documented as of this encounter
--- OUTSIDE RECORDS SUMMARY | 2023-06-18 00:36 | XMS_ITS | Referral Summary ---
Author Name Unknown Organization [facility] Address [address] [place] [address] Care Team Providers Care Jewelry Finisher Name Role Phone Monserrat Carey MD Primary Care Provider [phone] Allergies No known active allergies Medications Medication Sig Dispensed Refills Start Date End Date Status calcium carb 1250 mg, 500 mg [place],/vitamin D 200 units (OSCAL WITH D) 500-200 MG-UNIT per tabletIndications:Un specified hypothyroidism Take 1 tablet by mouth daily 100 tablet 3 11/01/2012 Active Additional Information Patient not taking.Reported on 12/15/2017 Levothyroxine Sodium (SYNTHROID PO) Take 200 mcg by mouth daily Active pramipexole (MIRAPEX) 0.125 MG tabletIndications:Re stless legs syndrome (RLS) Take 1-3 tabs by mouth 1 hour prior to typical onset of symptoms. 90 tablet 5 11/14/2014 Active Additional Information Patient not taking.Reported on 12/15/2017 clonazePAM (KLONOPIN) 0.5 MG tabletIndications:An xiety Take 0.5-1 tablets (0.25-0.5 mg) by mouth 2 times daily as needed for anxiety 30 tablet 1 12/31/2014 Active Additional Information Patient not taking.Reported on 12/15/2017 Cholecalciferol (VITAMIN D) 2000 UNITS tabletIndications:Vi tamin D deficiency Take 2,000 Units by mouth daily 100 tablet 3 01/03/2015 Active Additional Information Patient not taking.Reported on 12/15/2017 zolpidem (AMBIEN) 5 MG tabletIndications:Pe rsistent disorder of initiating or maintaining sleep Take 0.5 tablets (2.5 mg) by mouth nightly as needed for sleep 45 tablet 3 02/26/2015 Active Additional Information Patient not taking.Reported on 12/15/2017 meclizine (ANTIVERT) 25 MG tablet Take 1 tablet (25 mg) by mouth every 6 hours as needed for dizziness 30 tablet 1 03/26/2015 Active Additional Information Patient not taking.Reported on 12/15/2017 levothyroxine (SYNTHROID) 100 MCG tabletIndications:Co ngenital hypothyroidism with diffuse goiter Take 1 tablet (100 mcg) by mouth daily Take by mouth every morning at least 30 minutes before food with a 112 mcg tab for a total dose of 212 mcg daily. May dispense generic or brand name. 90 tablet 2 05/20/2015 Active levothyroxine (SYNTHROID) 112 MCG tabletIndications:Co ngenital hypothyroidism with diffuse goiter Take 1 tablet (112 mcg) by mouth daily Take by mouth every morning at least 30 minutes before food with a 100 mcg tab for a total dose of 212 mcg daily. May dispense generic or brand name. 90 tablet 2 05/20/2015 Active Additional Information Patient not taking.Reported on 12/15/2017 cyclobenzaprine (FLEXERIL) 10 MG tabletIndications:Sc iatica, left Take 0.5-1 tablets (5-10 mg) by mouth nightly as needed for muscle spasms 30 tablet 3 05/21/2015 Active Additional Information Patient not taking.Reported on 12/15/2017 sertraline (ZOLOFT) 100 MG tabletIndications:Karel pantoja depressive disorder, recurrent episode, mild (H24),Anxiety Take 1 tablet (100 mg) by mouth daily 30 tablet 0 12/03/2015 Active Additional Information Patient not taking.Reported on 12/15/2017 benzonatate (TESSALON) 100 MG capsule Take 1 capsule (100 mg) by mouth 3 times daily as needed for cough 15 capsule 0 12/23/2015 Active Additional Information Patient not taking.Reported on 12/15/2017 guaiFENesin-codeine (ROBITUSSIN AC) 100-10 MG/5ML SOLN solutionIndications: Cough Take 5 mLs by mouth nightly as needed for cough 120 mL 12/15/2017 Active amoxicillin-clavulan ate (AUGMENTIN) 875-125 MG per tabletIndications:Ac [place] non-recurrent maxillary sinusitis Take 1 tablet by mouth 2 times daily 20 tablet 12/15/2017 Active Active Problems Patient Care Coordination No te Formatting of this note migh t be different from the original. [email or web address] Problem Noted Date Diagnosed Date Osteoarthrosis, hip 04/15/2015 Anxiety 05/11/2013 Mild major depression 05/11/2013 Chest pain 05/02/2013 Morbid obesity 01/23/2013 Osteopenia 07/21/2012 Cholecystitis 08/30/2011 Acute on chronic cholecystitis 08/30/2011 Overview: Diagnosis updated by automated process. Provider to review and confirm. Tubular adenoma 05/19/2010 Impaired fasting glucose 04/29/2010 Hypercholesteremia 04/29/2010 Hypothyroidism 04/16/2010 Overview: Problem list name updated by automated process. Provider to review Hyperlipidemia LDL goal <160 04/16/2010 Snoring 04/16/2010 Onychomycosis 04/16/2010 Vitamin D deficiency GERD (gastroesophageal reflux disease) Hyperlipidemia Thyroid disease Overview: Graves RLS (restless legs syndrome) Insomnia DDD (degenerative disc disease) Resolved Problems Problem Noted Date Diagnosed Date Resolved Date Hip pain, left 09/09/2014 11/19/2014 Obesity 04/16/2010 01/23/2013 Smoker 05/28/2011 Obesity (BMI 30-39.9) 2012 Immunizations Name Administration Dates Next Due Influenza (IIV3) PF 04/29/2010 Influenza Vaccine >6 months,quad, PF 12/31/2014, 11/01/2012 Pneumococcal 23 valent 08/31/2011 TDAP Vaccine (Boostrix) 04/29/2010 Zoster vaccine, live 05/28/2011 Social History Tobacco Use Types Packs/Day Years Used Date Smoking Tobacco: Former Cigarettes 0.8 38 0 09/11/1974 - 09/11/2012 Smokeless Tobacco: Never Alcohol Use Standard Drinks/Week Comments No 0 (1 standard drink = 0.6 oz pur e alcohol) Sex and Gender Information Value Date Recorded Sex Assigned at Not on file Gender Identity Not on file Sexual Orientation Not on file Last Filed Vital Signs Vital Sign Reading Time Taken Comments Blood Pressure 144/84 12/15/2017 7:03 PM CIRCUS SUPERVISOR Pulse 68 12/15/2017 7:03 PM CIRCUS SUPERVISOR Temperature 36.6 ??C (97.8 ??F) 12/15/2017 7:03 PM CS T Respiratory Rate 20 12/23/2015 4:10 AM CIRCUS SUPERVISOR Oxygen Saturation 97% 12/15/2017 7:03 PM CIRCUS SUPERVISOR Inhaled Oxygen Concentration - - Weight 93.9 kg (207 lb) 12/15/2017 7:03 PM CIRCUS SUPERVISOR Height 162.6 cm (5' 4) 04/15/2015 11:34 AM CIRCUS SUPERVISOR Body Mass Index 35.53 04/15/2015 11:34 AM CIRCUS SUPERVISOR Plan of Treatment Not on file Advance Directives For more information, please contact: [phone] * Full Code (Latest Code Status on File) Date Activated Date Inactivated Comments 05/03/2013 9:31 AM * Full Code Date Activated Date Inactivated Comments 08/31/2011 12:22 PM 05/03/2013 9:31 AM * Full Code Date Activated Date Inactivated Comments 08/30/2011 6:38 PM 08/31/2011 12:22 PM Care Teams Jewelry Finisher Relationship Specialty Start [place] [address] [place] [address] PCP - General 12/15/17
--- OUTSIDE RECORDS SUMMARY | 2023-06-18 00:36 | XMS_ITS | Clinical Summary ---
Author Name Unknown Organization [facility] Address [address] [place] [address] Care Team Providers Care Flocculator Operator Name Role Phone Monserrat Carey MD Primary Care Provider [phone] Allergies No known active allergies Medications Medication Sig Dispensed Refills Start Date End Date Status calcium carb 1250 mg, 500 mg [place],/vitamin D 200 units (OSCAL WITH D) 500-200 [...] amoxicillin-clavulan ate (AUGMENTIN) 875-125 MG per tabletIndications:Ac [place] non-recurrent maxillary sinusitis Take 1 tablet by mouth 2 times daily 20 tablet 12/15/2017 Active Active Problems Patient Care Coordination No te Formatting of this note migh t be different from the original. [email or web address] Problem Noted Date Diagnosed Date Osteoarthrosis, hip [...] Vaccine (Boostrix) 04/29/2010 Zoster vaccine, live 05/28/2011 Family History Medical History Relation Comments Family History Negative Brother 2 C.A.D. Father [place] at 68 Family History Negative Father at 91 Prostate Cancer Father Cancer Mother bone marrow Cerebrovascular Disease Mother Hypertension Mother Heart Disease Paternal Grandfather Family History Negative Sister 1 4 Cancer Sister 2 skin Breast Cancer No family hx of Cancer - colorectal No family hx of Diabetes No family hx of Relation Status Comments Brother Father Mother Paternal Grandfather Sister 1 Sister 2 Social History Tobacco [...] Comments Blood Pressure 144/84 12/15/2017 7:03 PM ADMINISTRATIVE PROGRAM SPECIALIST Pulse 68 12/15/2017 7:03 PM ADMINISTRATIVE PROGRAM SPECIALIST Temperature 36.6 ??C (97.8 ??F) 12/15/2017 7:03 PM CS T Respiratory Rate 20 12/23/2015 4:10 AM ADMINISTRATIVE PROGRAM SPECIALIST Oxygen Saturation 97% 12/15/2017 7:03 PM ADMINISTRATIVE PROGRAM SPECIALIST Inhaled Oxygen Concentration - - Weight 93.9 kg (207 lb) 12/15/2017 7:03 PM ADMINISTRATIVE PROGRAM SPECIALIST Height 162.6 cm (5' 4) 04/15/2015 11:34 AM ADMINISTRATIVE PROGRAM SPECIALIST Body Mass Index 35.53 04/15/2015 11:34 AM ADMINISTRATIVE PROGRAM SPECIALIST Plan of Treatment Not on file Advance Directives For more information, please contact: [phone] * Full Code (Latest Code Status on File) Date Activated Date Inactivated Comments 05/03/2013 9:31 AM * Full Code Date Activated Date Inactivated Comments 08/31/2011 12:22 PM 05/03/2013 9:31 AM * Full Code Date Activated Date Inactivated Comments 08/30/2011 6:38 PM 08/31/2011 12:22 PM Care Teams Flocculator Operator Relationship Specialty [place] [address] [place] [address] PCP - General 12/15/17
--- OUTSIDE RECORDS SUMMARY | 2023-06-18 00:37 | XMS_ITS | Encounter Summary ---
Author Name Unknown Organization [facility] Address [facility] [place] [address] Care Team Providers Care Career Resource Technician Name Role Phone Kathia Forbes MD Primary Care Provider Benita Boss APRN [facility] Primary Care Provi manuel Monserrat Carey MD Primary Care Provider [phone] Reason for Referral * Specialty Diagnoses / Procedures Referred By Contac t Referred To Contact Kathia Forbes MD [address] [place] [address] Referral ID Status Reason Start Date Expiration Date Visits Re quested Visits Authorized Encounter Details Date Type Department Care Team (Late st Contact Info) Description 05/06/[address] [facility] [address] [place] [id number] Kathia Forbes MD [address] [place] [id number] Special screening for malignant neoplasms, colon (Primary Dx) Social History Tobacco Use Types Packs/Day Years Used Date Smoking Tobacco: Some Days Cigarettes Alcohol Use Standard Drinks/Week Comments No 0 (1 standard drink = 0.6 oz pur e alcohol) Sex and Gender Information Value Date Recorded Sex Assigned at Not on file Gender Identity Not on file Sexual Orientation Not on file documented as of this encounter Plan of Treatment Not on file documented as of this encounter Procedures Procedure Name Priority Date/Time Associated Diagnosis Comments [facility]Z GASTROENTEROLOGY ADULT REFERRAL +/- PROCEDURE Routine 05/01/2010 Special screening for malignant neoplasms, colon documented in this encounter Results * GASTROENTEROLOGY ADULT REFERRAL +/- PROCEDURE (05/01/2010) COLONOSCOPY 05/01/2010 Kathia Forbes MD REFERRAL documented in this encounter Visit Diagnoses Diagnosis Special screening for malignant neoplasms, colon- Primary documented in this encounter Care Teams Career Resource Technician Relationship Specialty Start Date End Date Kathia Forbes MD PCP - General Family Practice 04/30/10 11/27/13 Benita Boss APRN RECORDING CLERK PCP - General Nurse Practitioner - Family 11/28/13 1 [place] [address] [place] [address] PCP - General 12/15/17 documented as of this encounter
--- OUTSIDE RECORDS SUMMARY | 2023-06-18 00:37 | XMS_ITS | Clinical Summary ---
Author Name Unknown Organization [facility] Address [place], [place] [address] Care Team Providers Care Rigger Third Name Role Phone Monserrat Carey MD Primary Care Provider [phone] Allergies No known active allergies Medications Medication Sig Dispensed Refills Start Date End Date Status cholecalciferol (VITAMIN D-3) 2,000 unit capsuleIndications: Insomnia, idiopathic Take 1 capsule by mouth once daily. 30 capsule 01/16/2016 Active RESTASIS 0.05 % ophthalmic emulsion INSTILL 1 DROP INTO BOTH EYES TWICE A DAY 3 05/12/2016 Active clonazePAM (KLONOPIN) 0.5 mg tabletIndications:A nxiety 1/2-1 tab once daily as needed for anxiety 10 tablet 08/07/2019 Active celecoxib (CELEBREX) 100 mg capsule Take 100 mg by mouth 2 times daily with meals. 01/27/2020 Active levothyroxine (SYNTHROID) 175 mcg tabletIndications:H ypothyroidism (acquired) TAKE 1 TABLET BY MOUTH EVERY DAY BEFORE BREAKFAST 90 Tablet 06/18/2020 Active sertraline (ZOLOFT) 100 mg tabletIndications:A nxiety TAKE 2 TABLETS BY MOUTH EVERY DAY 60 Tablet 09/05/2020 Active Active Problems Problem Noted Date Diagnosed Date H/O gastric bypass 07/23/2016 Hypothyroidism (acquired) 09/04/2015 Insomnia, idiopathic 09/04/2015 Vitamin D deficiency 09/04/2015 Depression with anxiety 09/04/2015 Grave's disease 08/06/2009 Fibromyalgia Bursitis of left hip Immunizations Name Administration Dates Next Due Hepatitis A (Adult) 01/26/2019 Influenza, IIV3 (Age 6-35 mos) 01/14/2009 Influenza, IIV3 (Age >=3 years) 11/27/2010,04/29 Influenza, IIV4 02/07/2020, 7,02/10/2016,12/31,11/01/2012 Influenza, Inactivated IIV3 (Age 65+ Years) Preserv Free 01/26/2019 Meningococcal Vaccine (Menveo) 01/26/2019 Pneumococcal Poly,23-Valent (Pneumovax) 08/31/2011,01/14/2009 Tdap 04/29/2010 Typhoid (injectable) 01/26/2019 Varicella Vaccine 1966 Yellow Fever 01/26/2019 Zoster (Shingrix-RZV, recombinant) 09/17/2019 Zoster (Zostavax-ZVL, live) 05/28/2011 Family History Medical History Relation Name Comments No Known Problems Brother x 2 Good Health Daughter Cancer-prostate Father Heart attack Father 75 Other Maternal Grandfather MVA Brain Aneurysm Maternal Grandmother 30s Graves' disease Mother Hypertension Mother Other Mother bone marrow can cer Hypertension Sister 1 Destiny No Known Problems Sister 2 x 4 Bronchopulmonary dysplasia Son 1 Christopher Good Health Son 2 Relation Name Status Comments Brother x 2 Alive Daughter Alive Father Maternal Grandfather Maternal Grandmother Mother Paternal Grandfather Paternal Grandmother Sister 1 Destiny Alive Sister 2 x 4 Alive Son 1 Christopher Alive Son 2 Alive Social History Tobacco Use Types Packs/Day Years Used Date Smoking Tobacco: Former Cigarettes 0.5 38 1 03/04/1970 - 01/02/2009 Smokeless Tobacco: Never Tobacco Cessation:Counseling Given: Yes Alcohol Use Standard Drinks/Week Comments No 0 (1 standard drink = 0.6 oz pur e alcohol) PHQ-2 Answer Date Recorded PHQ-2 TOTAL SCORE 2 02/07/2020 Social Connections Answer Date Recorded Frequency of Communication with Friends and Fami ly Not on file 02/07/2021 Financial Resource Strain Answer Date R ecorded Difficulty of Paying Living Expenses Not on file 02/07/2021 Difficulty of Paying Living Expenses Not on file 02/07/2021 Sex and Gender Information Value Date Recorded Sex Assigned at Not on file Gender Identity Not on file Sexual Orientation Not on file Obstetrics History Last Filed Vital Signs Vital Sign Reading Time Taken Comments Blood Pressure 124/84 02/07/2020 12:31 PM GIS TECHNICIAN Pulse 72 02/07/2020 12:31 PM GIS TECHNICIAN Temperature 37.1 ??C (98.7 ??F) 01/28/2020 2:27 PM CS T Respiratory Rate 18 01/28/2020 2:27 PM GIS TECHNICIAN Oxygen Saturation 95% 01/28/2018 10:58 AM GIS TECHNICIAN Inhaled Oxygen Concentration - - Weight 97.3 kg (214 lb 9.6 oz) 02/07/2020 12:31 PM GIS TECHNICIAN Height 162.6 cm (5' 4) 01/28/2020 2:27 PM GIS TECHNICIAN Body Mass Index 36.84 01/28/2020 2:27 PM GIS TECHNICIAN Plan of Treatment Health Maintenance Due Date Last Done Comments Hepatitis C screening for ag e 18-79 1974 Mammogram for age 45-75 12/31/2017 01/01/20 17, 12/29/2015 (Completed outside of [facility]) Zoster (shingles) series for age 50+ (3 of 3) 11/12/2019 09/17/2019, 05/28/2011 Tetanus booster 04/29/2020 04/29/2010 BMI (ht and wt on same day) for age 18+ 05/10/2020 05/11/2019, 12/13/2017, 08/25/2017, Additional history exists Colonoscopy through age 75 11/12/2020 11/13/2015 Depression screening for age 12+ 02/06/2021 02/07/2020, 08/07/2019, 05/11/2019, Additional history exists Lipids for age 45-75 04/08/2021 04/08/2016, 11/24/19 16 DEXA/DXA scan for age 65+ 2021 Pneumococcal series for age 65+ (2 of 2 - PCV) 2021 08/31/2011, 01/14/2009 COVID-19 vaccine series ( - season) 2022 Influenza for age 65+ 10/09/2023 02/07/2020 , 01/26/2019, 12/31/2016, Additional history exists Tdap Completed 04/29/2010 Procedures Procedure Name Priority Date/Time Associated Diagnosis Comments XR MAMMO BILAT SCREENING Routine 12/31/2016 2:16 PM GIS TECHNICIAN Screening for breast cancer LIPID PANEL W REFLEX MEASURED LDL Routine 04/08/2016 8:40 AM GIS TECHNICIAN Hypothyroidism (acquired) SCAN-COLONOSCOPY 11/13/2015 8:30 AM CDT from Last 3 Months or Most Recently Relevant to Health Maintenance Results * XR MAMMO BILAT SCREENING (12/31/2016 2:16 PM GIS TECHNICIAN) Anatomical Region Laterality Modality BREASTS, Breast Left, Breast Right Bilateral Mammography Impressions 01/04/2017 8:38 AM GIS TECHNICIAN ??There is no radiographic evidence for malignancy. ??Recommend annual mammograms. A lay language report of this examination will be provided to the patient. MAMMOGRAM ASSESSMENT: ??ACR 1 Negative Narrative 01/04/2017 8:38 AM GIS TECHNICIAN XR MAMMO BILAT SCREENING [[id number]] CLINICAL HISTORY: ??This is an asymptomatic 61 y.o. patient. INDICATION FOR EXAM: Mammogram Screening. TECHNIQUE: CC & MLO views were obtained. ??This digital study was evaluated with the assistance of Computer-Aided Detection. COMPARISON FILM: Priors not available at the time of this report. FINDINGS: ??Mammographically, the breast tissue has scattered fibroglandular densities. ??There are no dominant masses, suspicious micro calcifications or areas of architectural distortion. Monserrat Carey MD MAMMO * (ABNORMAL) LIPID PANEL W REFLEX MEASURED LDL (04/08/2016 8:40 AM GIS TECHNICIAN) CHOLESTEROL,TOTAL 197 100 - 199 mg/dL 04/08/2016 2:30 PM GIS TECHNICIAN [facility] [employer] [facility] TRIGLYCERIDES 138 <150 mg/dL 04/08/2016 2:30 PM GIS TECHNICIAN [facility] [employer] [facility] HDL CHOLESTEROL 43 >40 mg/dL 7 2:30 PM GIS TECHNICIAN [facility] NON-HDL CHOLESTEROL 154(H) <145 mg/dl 04/08/2016 2:30 PM GIS TECHNICIAN [facility] TR[facility] CHOL/HDL RATIO 4.58(H) <4.50 04/08/2016 2:30 PM GIS TECHNICIAN [facility] [employer] [facility] LDL CHOLESTEROL 126 <=130 mg/dL 04/08/2016 2:30 PM GIS TECHNICIAN [facility] PATIENT STATUS FASTING 04/08/2016 2:30 PM GIS TECHNICIAN [facility] Blood BLOOD SPECIMEN / Unknown Venipuncture / Unknown 04/08/2016 8:40 AM GIS TECHNICIAN 04/08/2016 8:40 AM GIS TECHNICIAN Monserrat Carey MD CHEMISTRY [facility] [address] [place] [address], [place] * SCAN-COLONOSCOPY (11/13/2015 8:30 AM CDT) Narrative Procedure Note Ashok Lynne MD - 11/13/2015 7:51 AM CDT [facility] [address], [address], [place] [address] Patient Name: Gabby Acosta Gender: Female Exam Date: 11/13/2015 Visit Number: [id number] Age: 59 Years Date of : 1955 Attending MD: Ashok Lynne MD Medical Record#: [id number] ----- Procedure: Colonoscopy Indications: Previous adenomatous polyp(s) Referring MD: Monserrat Carey MD Primary MD: Monserrat Carey MD Medications: Admitting Medication: 0.9% Normal Saline at TKO Intra Procedure Medications: Received MAC sedation per anesthesia provider Complications: Procedure: An examination of the heart and lungs was performed and found to be withinacceptable limits. The patient was therefore deemed a reasonablecandidate for endoscopy and 1 sedation. The risks and benefits of the procedure were explained to the patient.After obtaining informed consent, MAC sedation was administered peranesthesia provider and I passed the scope without difficulty via the rectum to the cecum. The appendiceal orificeand ic valve were identified. The scope was retroflexed during theexamination The quality of the prep was good (Miralax/Gatorade/2 tabletsBisacodyl/Magnesium Citrate). This was a complete examination throughout the entire colon. Findings: Inflammation. Descriptor(s) - ulceration. Single large ulceration, witha few areas of smaller ulceration and erosion around it. Location -transverse colon. Maneuver - cold biopsy forceps. Site marked with Spottattoo. Polyp location: transverse colon. Quantity: 1. Size: 2 mm. Polyp shape:sessile. Maneuver: polypectomy was performed with a cold biopsy forceps. Removal: complete. Retrieval: complete. Bleeding: none. Diverticulosis. Location: - sigmoid. Quantity: several. Remainder of the exam is normal. Impression: Colon polyp Diverticulosis of colon without hemorrhage impression comments: I suspect this ulcer is related to your ibuprofenuse. Pathology Results: A: COLON, TRANSVERSE, BIOPSY: 1. Colonic mucosa with an ischemic pattern of injury of unclear etiology(see comment) 2. No evidence of microscopic or chronic colitis 3. A cytomegalovirus (CMV) immunohistochemical stain is negative B: COLON, TRANSVERSE, POLYP: 1. Tubular adenoma 2. No evidence of high grade dysplasia 3. Per the attached endoscopy report: a. Polyp size: 2mm b. Resection: Complete c. Retrieval: Complete MICROSCOPIC A: Performed B: Performed Electronically signed by: Isacc Gutierrez MD Support for the interpretation of this case may have included the use ofimmunohistochemistry that were performed by [facility] and whose performance characteristics were evaluated bypathologists from [facility]. These tests have not beencleared or approved by the U.S. Food and Drug Administration. The FDA hasdetermined that such clearance or approval is not necessary. These testsare used for clinical purposes and should not be regarded asinvestigational or for research. This laboratory is certified under theClinical Laboratory Improvement Amendments of 1988 (CLIA) as qualified toperform high complexity clinical laboratory testing. The biopsies suggest that the ulcer was due to a lack of blood flow tothat area of the colon. No signs of cancer found. Final Plan: Return for a colonoscopy in 6 months for to check ulcer healing. We will attempt to contact you at appropriate intervals via U.S. mail. Wemay not be able to find you or contact you at that time, therefore youshould know that the responsibility for following our recommendation restswith you. If you don't hear from us at the time your procedure is due,please contact our office to schedule an appointment. If your contactinformation should change, please contact our office so that we can updateyour record. Additional Comments: The biopsies suggest that the ulcer was due to a lack of blood flow tothat area of the colon. No signs of cancer found. _Electronically signed by: Ashok Lynne MD 11/13/2015 Ashok Lynne MD OTHER from Last 3 Months or Most Recently Relevant to Health Maintenance Care Teams Rigger Third Relationship Specialty [place] [address] [place] [address] PCP - General Family Practice 11/10/15
--- OUTSIDE RECORDS SUMMARY | 2023-06-18 00:37 | XMS_ITS | Encounter Summary ---
Author Name Unknown Organization [facility] Address [address] [place] [address] Care Team Providers Care Oil Changer Name Role Phone Kathia Forbes MD Primary Care Provider [phone] Benita Boss APRN [facility] Primary Care Provi manuel Monserrat Carey MD Primary Care Provider [phone] Encounter Details Date Type Department Care Team (Late st Contact Info) Description 11/12/2010 [facility] Medical Advice [address] [address] Kathia Forbes MD [address] [place] [phone] Social History Tobacco Use Types Packs/Day Years [...] on filedocumented in this encounter Care Teams Oil Changer Relationship Specialty Start Date End Date Kathia Forbes MD PCP - General Family Practice 04/30/10 11/27/13 Benita Boss APRN [facility] PCP - General Nurse Practitioner - Family 11/28/13 1 [place] [address] [place] [address] PCP - General 12/15/17 documented as of this encounter
--- OUTSIDE RECORDS SUMMARY | 2023-06-18 00:37 | XMS_ITS | Encounter Summary ---
Author Name Unknown Organization [facility] Address [address] [place] [address] Care Team Providers Care Sailor Name Role Phone Kathia Forbes MD Primary Care Provider [phone] Benita Boss APRN [facility] Primary Care Provi manuel Monserrat Carey MD Primary Care Provider [phone] Encounter Details Date Type Department Care Team (Late st Contact Info) Description 05/27/2010 [facility] Medical Advice [address] [address] Kathia Forbes MD [address] [place] [phone] Social History Tobacco Use Types Packs/Day Years [...] on filedocumented in this encounter Care Teams Sailor Relationship Specialty Start Date End Date Kathia Forbes MD PCP - General Family Practice 04/30/10 11/27/13 Benita Boss APRN [facility] PCP - General Nurse Practitioner - Family 11/28/13 1 [place] [address] [place] [address] PCP - General 12/15/17 documented as of this encounter
--- OUTSIDE RECORDS SUMMARY | 2023-06-18 00:37 | XMS_ITS | Encounter Summary ---
Author Name Unknown Organization [facility] Address [address] [place] [address] Care Team Providers Care Business Services Clerk Name Role Phone Kathia Forbes MD Primary Care Provider Benita Boss APRN [facility] Primary Care Provi manuel Monserrat Carey MD Primary Care Provider [phone] Encounter Details Date Type Department Care Team (Late st Contact Info) Description 06/20/2010 [facility] Medical Advice [address] [address] Kathia Forbes MD [address] [place] [address] [phone] Social History Tobacco Use Types Packs/Day Years [...] on filedocumented in this encounter Care Teams Business Services Clerk Relationship Specialty Start Date End Date Kathia Forbes MD PCP - General Family Practice 04/30/10 11/27/13 Benita Boss APRN [facility] PCP - General Nurse Practitioner - Family 11/28/13 1 [place] [address] [place] [address] PCP - General 12/15/17 documented as of this encounter
--- OUTSIDE RECORDS SUMMARY | 2023-06-18 00:37 | XMS_ITS | Encounter Summary ---
Author Name Unknown Organization [facility] Address [address] [place] [address] Care Team Providers Care Retail Consultant Name Role Phone Kathia Forbes MD Primary Care Provider [phone] Benita Boss APRN [facility] Primary Care Provi manuel Monserrat Carey MD Primary Care Provider [phone] Encounter Details Date Type Department Care Team (Late st Contact Info) Description 06/12/2010 [facility] Medical Advice [address] [address] Kathia Forbes MD [address] [place] [phone] Social History Tobacco Use Types Packs/Day Years [...] on filedocumented in this encounter Care Teams Retail Consultant Relationship Specialty Start Date End Date Kathia Forbes MD PCP - General Family Practice 04/30/10 11/27/13 Benita Boss APRN [facility] PCP - General Nurse Practitioner - Family 11/28/13 1 [place] [address] [place] [address] PCP - General 12/15/17 documented as of this encounter
== END 2023-06-18 00:45 | disposition home or self-care (01) ==
LOC: ED 00:33
PROVIDERS: Emergency Provider Internal Medicine; PCP Physician Assistant Medical
DX: K08.89 Other specified disorders of teeth and supporting structures (principal)
CPT/HCPCS: 99282; 99283

== ENCOUNTER 2023-06-21 19:46 | Emergency (ER) | payer MEDICARE, SELFPAY ==
[2023-06-21 19:50] VITALS: BP 132/79; PULSE 66; RESP 16; TEMP 36.7; O2SAT 95; BMI 39.5
--- NOTE | 2023-06-21 20:11 | ED.GENADULT ---
HPI - General Adult General Date Seen: 06/21/23 Chief complaint: Dental/Oral/Mouth Injury/Pain Stated complaint: Pain post tooth extraction Time Seen by Provider: 06/21/23 19:56 Source: patient, RN notes reviewed and old records reviewed Mode of arrival: ambulatory Limitations: no limitations History of Present Illness HPI narrative: Patient is a 67-year-old woman seen here a few days ago with a dental infection, started on antibiotics at that time. She did see her dentist yesterday, the tooth was pulled today and she had a bone graft in anticipation of dental implant. She says that they told her to take Tylenol but she is having severe pain, does not think she will be able to sleep. No significant swelling, no fevers or other complaints. Related Data Home Medications Medication Instructions Recorded Confirmed cholecalciferol (vitamin D3) 50 2,000 unit PO .Bedtime 08/27/21 06/18/23 mcg (2,000 unit) tablet cyclosporine 0.05 % eye drops 1 drp ophthalmic (eye) BID 08/27/21 06/18/23 famotidine 20 mg tablet 20 mg PO .Bedtime 08/27/21 06/18/23 Previous Rx's Medication Instructions Recorded amlodipine 5 mg tablet 5 mg PO QDAY #90 tabs 06/16/23 celecoxib 200 mg capsule 200 mg PO DAILY #90 caps 06/16/23 clonazepam 0.5 mg tablet 0.25 mg (1/2 x 0.5 mg) PO QHS PRN 06/16/23 insomnia #30 tabs levothyroxine 200 mcg tablet 200 mcg PO DAILY #90 tabs 06/16/23 losartan 50 mg tablet 50 mg PO DAILY #90 tabs 06/16/23 rosuvastatin 20 mg tablet 20 mg PO QHS #90 tabs 06/16/23 sertraline 100 mg tablet 200 mg (2 x 100 mg) PO QDAY #180 06/16/23 tabs trazodone 50 mg tablet 50 - 150 mg (1 - 3 x 50 mg) PO QHS 06/16/23 PRN sleep #180 tabs Allergies Allergy/AdvReac Type Severity Reaction Status Date / Time NSAIDS (Non-Steroidal Allergy Severe Hx of Verified 06/18/23 00:21 Anti-Inflamma bypass PFSH PFS Medical History Abscess of prepatellar region ?L02.419 - Cutaneous abscess of limb, unspecified (ICD-10) History of fracture ?Z87.81 - Personal history of (healed) traumatic fracture (ICD-10) Surgical History History of left knee surgery (04/09/20) ?Z98.890 - Other specified postprocedural states (ICD-10) H/O arthroscopy of right knee (08/06/20) ?Z98.890 - Other specified postprocedural states (ICD-10) History of colonoscopy ?Z98.890 - Other specified postprocedural states (ICD-10) History of section ?Z98.891 - History of uterine scar from previous surgery (ICD-10) 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) ?Z96.642 - Presence of left artificial hip joint (ICD-10) History of arthroplasty of right knee (12/22/20) ?Z96.651 - Presence of right artificial knee joint (ICD-10) History of sleeve gastrectomy ?Z90.3 - Acquired absence of stomach [part of] (ICD-10) History of bilateral breast reduction surgery ?Z98.890 - Other specified postprocedural states (ICD-10) History of cholecystectomy ?Z90.49 - Acquired absence of other specified parts of digestive tract (ICD-10) Family History Father Prostate cancer, Onset Age: 93 Other Stroke Social History Narrative: Not current smoker What is your current living situation?: I presently have a place to live Problems where you live: no known problems In the past 12 months, utilities in danger of being shut off: no In past 12 months, lack of transportation kept you from medical appts, meetings, work, or getting things needed for daily living: no In the past 12 mos, have been you worried that your food would run out before you had money to buy more?: never true In the past 12 mos, the food you bought just didn't last and you didn't have money to buy more?: never true Smoking Status: Former smoker Do you use any of these nicotine containing products: None Second hand tobacco smoke exposure: No How often do you have a drink containing alcohol: never AUDIT-C Alcohol total score: 0 Non-prescribed substance use: denies use How often does anyone, including family, friends and others, physically hurt you: never How often does anyone, including family, friends and others, insult or talk down to you: never How often does anyone, including family, friends and others, threaten you with harm: never How often does anyone, including family, friends and others, scream or curse at you: never Little interest or pleasure in doing things: several days Feeling down, depressed, or hopeless: several days Exam Narrative: Exam Narrative: Vital signs reviewed In general, alert, nontoxic woman. She is holding an ice pack on her face. ENT: Dentition is notable for recently extracted tooth. There is no significant surrounding swelling, no evident abscess. Bleeding is controlled. Jaw is nontender. Neck: Supple, no masses or adenopathy, no stridor. Airway patent. Const: Vital Signs, click to edit/add: Vital Signs - 24 hr 06/21/23 19:50 Temperature 98.1 F Pulse Rate [Left P ulse Oximeter] 66 Respiratory Rate 16 Blood Pressure [Ri ght Upper Arm] 132/79 Pulse Oximetry 95 Oxygen Delivery Me thod Room Air Documenting provider has reviewed patient's vital signs: yes Course Course ED Course: Patient cannot take nonsteroidal secondary to prior gastric bypass. I have given her oxycodone, 8 tablets from [facility]. Discussed with her that if she is still requiring stronger pain medications throughout the day tomorrow that I would recommend she call her dentist and see if she needs to be seen again. Return at any time for new worsening problems such as fever, facial swelling. Vital Signs Vital signs: Initial Vital Signs Temperature 98.1 F 06/21/23 19:50 Temperature Source Temporal Artery Scan 06/21/23 19:50 Pulse Rate 66 06/21/23 19:50 Respiratory Rate 16 06/21/23 19:50 Blood Pressure 132/79 06/21/23 19:50 Blood Pressure Mean 96 06/21/23 19:50 Blood Pressure Position Sitting 06/21/23 19:50 Pulse Oximetry 95 06/21/23 19:50 Oxygen Delivery Method Room Air 06/21/23 19:50 Vital Signs Temperature 98.1 F 06/21/23 19:50 Pulse Rate 66 06/21/23 19:50 Respiratory Rate 16 06/21/23 19:50 Blood Pressure 132/79 06/21/23 19:50 Pulse Oximetry 95 06/21/23 19:50 Oxygen Delivery Method Room Air 06/21/23 19:50 Temperature 98.1 F 06/21/23 19:50 Pulse Rate 66 06/21/23 19:50 Respiratory Rate 16 06/21/23 19:50 Blood Pressure 132/79 06/21/23 19:50 Pulse Oximetry 95 06/21/23 19:50 Oxygen Delivery Method Room Air 06/21/23 19:50 Discharge Plan Discharge Clinical Impression: Pain, dental Patient Disposition: Home, Self-Care Condition: Stable Instructions: Toothache (ED) Additional Instructions: Tylenol 1000 mg 3 times daily. Oxycodone if needed for severe uncontrolled pain. Please contact your dentist tomorrow if you are still needing stronger pain medications during the day tomorrow to find out if you should be seen again. Complete antibiotics as prescribed. Prescriptions: No Action levothyroxine 200 mcg tablet 200 mcg PO DAILY Qty: 90 3RF losartan 50 mg tablet 50 mg PO DAILY Qty: 90 3RF sertraline 100 mg tablet 200 mg PO QDAY Qty: 180 3RF trazodone 50 mg tablet 50 - 150 mg PO QHS PRN (Reason: sleep) Qty: 180 1RF amlodipine 5 mg tablet 5 mg PO QDAY Qty: 90 3RF clonazepam 0.5 mg tablet 0.25 mg PO QHS PRN (Reason: insomnia) Qty: 30 0RF celecoxib 200 mg capsule 200 mg PO DAILY Qty: 90 3RF rosuvastatin 20 mg tablet 20 mg PO QHS Qty: 90 3RF famotidine 20 mg tablet 20 mg PO .Bedtime cholecalciferol (vitamin D3) 50 mcg (2,000 unit) tablet 2,000 unit PO .Bedtime cyclosporine 0.05 % drops 1 drp ophthalmic (eye) BID Follow Up/Referrals: Bharati Carey PA-C [Primary Care Provider] - Stand Alone Forms: [facility] Info Instructions
--- OUTSIDE RECORDS SUMMARY | 2023-06-21 20:25 | XMS_ITS | Continuity of Care Document ---
Author Name Unknown Organization [facility] Address [address] [address] [place] [address] Phone Care Team Providers Care Hotel Front Desk Clerk Name Role Phone Link Ashok MORTON Unavailable [...] Diagnoses Date Provider Providers Copied on Encounter [facility], [address] [address], [place], [id number], [place] tel:[phone] [facility] No Information 6 Link MD Pulido. [address] [facility] [address], [facility] [place], [id number] , [place]. [phone] Referring Provider: Referral Self, USE FOR SELF REFERRALS. [facility], [address] [address], [place], [id number], [place] tel:[phone] [facility] Colon polypDiverticulosis of colon without hemorrhageEncounter for screening for malignant neoplasm of colonBenign neoplasm of transverse colonPersonal history of colonic polypsVascular disorder of intestine, unspecifiedVascular disorder of intestine, unspecified 6 Maged Pulido. [address] [facility], [facility] [address], [place], [place], [id number] , [place]. [phone] Referring Provider: [place], [address] [place], [address]. tel:[phone] [facility], [address] [address], [place], [place], [address], [place] tel:[phone] [facility] Polyp-intes/rect/st om-unc BehColon Cancer ScreeningDiverticul osis Of ColonBenign Neoplasm Lg Bowel Aguilar Cavazos . [address] [facility], [facility] [address], [place], [place], [id number] , [place]. [phone] Family History Family Member Type Diagnosis Age At Onset Daughter Problem (finding) Alive and well Brother Problem (finding) Alive and well Sister Problem (finding) Alive and well Father Problem (finding) prostate cancer Mother Problem (finding) Thyroid disorder Son Problem (finding) Alive and well Mother Problem (finding) Lymphoma Payers Payer name Insurance type Covered green party ID Authoriza tion(s) [employer] [facility] [id number] Social History Type Description Quantity Date Captured [...]
--- OUTSIDE RECORDS SUMMARY | 2023-06-21 20:25 | XMS_ITS | Encounter Summary ---
Author Name Unknown Organization [facility] Address [address] [place] [address] Care Team Providers Care Momd Teacher Name Role Phone Monserrat Carey MD Primary Care Provider Encounter Details Date Type Department Care Team (Late st Contact Info) Description 12/02/2015 MyC Medical Advice [facility] [address] [place] [address] Shayy Powers, SENIOR EXECUTIVE ASSISTANT LIME KILN TENDER [address] [place] [address] [address] [place], [place] [id number] Social History Tobacco Use Types Packs/Day Years [...] documented as of this encounter Care Teams Momd Teacher Relationship Specialty [place] [address] [place] [address] PCP - General 12/15/17 documented as of this encounter
--- OUTSIDE RECORDS SUMMARY | 2023-06-21 20:25 | XMS_ITS | Clinical Summary ---
Author Name Unknown Organization [facility] Address [address] [place] [address] Care Team Providers Care Due Diligence Coordinator Name Role Phone Monserrat Carey MD Primary Care Provider [phone] Allergies No known active allergies Medications Medication Sig Dispensed Refills Start Date End Date Status calcium carb 1250 mg, 500 mg [place]ta,/vitamin D 200 units (OSCAL WITH D) 500-200 [...] amoxicillin-clavulan ate (AUGMENTIN) 875-125 MG per tabletIndications:Ac [place] non-recurrent maxillary sinusitis Take 1 tablet by mouth 2 times daily 20 tablet 12/15/2017 Active Active Problems Patient Care Coordination No te Formatting of this note migh t be different from the original. [email or web address] Problem Noted Date Diagnosed Date Osteoarthrosis, hip [...] Family History Negative Brother 2 C.A.D. Father NC at 68 Family History Negative Father at [...] Comments Blood Pressure 144/84 12/15/2017 7:03 PM BREADMAN Pulse 68 12/15/2017 7:03 PM BREADMAN Temperature 36.6 ??C (97.8 ??F) 12/15/2017 7:03 PM CS T Respiratory Rate 20 12/23/2015 4:10 AM BREADMAN Oxygen Saturation 97% 12/15/2017 7:03 PM BREADMAN Inhaled Oxygen Concentration - - Weight 93.9 kg (207 lb) 12/15/2017 7:03 PM BREADMAN Height 162.6 cm (5' 4) 04/15/2015 11:34 AM BREADMAN Body Mass Index 35.53 04/15/2015 11:34 AM BREADMAN Plan of Treatment Not on file Advance Directives For more information, please contact: [phone] * Full Code (Latest Code Status on File) Date Activated Date Inactivated Comments 05/03/2013 9:31 AM * Full Code Date Activated Date Inactivated Comments 08/31/2011 12:22 PM 05/03/2013 9:31 AM * Full Code Date Activated Date Inactivated Comments 08/30/2011 6:38 PM 08/31/2011 12:22 PM Care Teams Due Diligence Coordinator Relationship Specialty Start [place] [address] [place] [address] PCP - General 12/15/17
--- OUTSIDE RECORDS SUMMARY | 2023-06-21 20:25 | XMS_ITS | Clinical Summary ---
Author Name Unknown Organization [facility] Address [address] [address] Phone Care Team Providers Care Flame Cutting Machine Operator Helper Name Role Phone Unavailable Primary Care Provider [...] History of hyperthyroidism 10/29/2015 Annot ation - [id number]: Radioactive Iodine Family History Medical History Relation [...] this topic Gabby Acosta Personal/Family Self 1955 [place] [address]
--- OUTSIDE RECORDS SUMMARY | 2023-06-21 20:25 | XMS_ITS | Encounter Summary ---
Author Name Unknown Organization [facility] Address [address] [place] [address] Care Team Providers Care Supervisor Inspection Room Name Role Phone Monserrat Carey MD Primary Care Provider [phone] Encounter Details Date Type Department Care Team (Late st Contact Info) Description 02/16/2016 MyC Medical Advice [facility] [address] [place] [phone] Shayy Powers, HEALTH PROGRAM DIRECTOR DIRECTOR OF PRIMARY CARE [address] [place] [address] [address] [place], [place] [address] Social History Tobacco Use Types Packs/Day Years [...] documented as of this encounter Care Teams Supervisor Inspection Room Relationship Specialty [place] [address] [place] [address] PCP - General 12/15/17 documented as of this encounter
--- OUTSIDE RECORDS SUMMARY | 2023-06-21 20:25 | XMS_ITS | Clinical Summary ---
Author Name Unknown Organization [facility] Address [address] [place] [address] Care Team Providers Care Clay Machine Operator Name Role Phone Unassigned, Provider Primary Care Provider Unava ilable Source Comments You are receiving this document as you are listed as the primary care provider,follow-up provider, or the patient has been referred to you for consultation.This is in compliance with the Medicare and[facility] Hospital[facility] EHR Incentive Program,which states Providers who transition their patient to another setting of careor provider of care or refers their patient to another provider of care shouldprovide summary care record for each transition of care or referral. [facility] Allergies No known active allergies Medications Medication [...] (Trivalent) F jo ann Highdose, 65+ Yrs (23920) 01/26/2019 Influenza IIV4 (Quadrivalent ) 0.5mL (41545) 12/31/2016,02/10/2016,12/31/2014, 013 MCV4 Eugenia 2m.+ (two vial) [...] age to complete this topic Care Teams Clay Machine Operator Relationship Specialty Start Date End Date Unassigned, Provider [address] [place] [address] PCP - General 07/26/00
--- OUTSIDE RECORDS SUMMARY | 2023-06-21 20:25 | XMS_ITS | Referral Summary ---
Author Name Unknown Organization [facility] Address [address] [place] [address] Care Team Providers Care Paste Plant Supervisor Name Role Phone Monserrat Carey MD Primary Care Provider Allergies No known active allergies Medications Medication Sig Dispensed Refills Start Date End Date Status calcium carb 1250 mg, 500 mg [place],/vitamin D 200 units (OSCAL WITH D) 500-200 [...] amoxicillin-clavulan ate (AUGMENTIN) 875-125 MG per tabletIndications:Ac [place] non-recurrent maxillary sinusitis Take 1 tablet by mouth 2 times daily 20 tablet 12/15/2017 Active Active Problems Patient Care Coordination No te Formatting of this note migh t be different from the original. [email or web address] Problem Noted Date Diagnosed Date Osteoarthrosis, hip [...] Comments Blood Pressure 144/84 12/15/2017 7:03 PM CONFERENCE ASSISTANT Pulse 68 12/15/2017 7:03 PM CONFERENCE ASSISTANT Temperature 36.6 ??C (97.8 ??F) 12/15/2017 7:03 PM CS T Respiratory Rate 20 12/23/2015 4:10 AM CONFERENCE ASSISTANT Oxygen Saturation 97% 12/15/2017 7:03 PM CONFERENCE ASSISTANT Inhaled Oxygen Concentration - - Weight 93.9 kg (207 lb) 12/15/2017 7:03 PM CONFERENCE ASSISTANT Height 162.6 cm (5' 4) 04/15/2015 11:34 AM CONFERENCE ASSISTANT Body Mass Index 35.53 04/15/2015 11:34 AM CONFERENCE ASSISTANT Plan of Treatment Not on file Advance Directives For more information, please contact: [phone] * Full Code (Latest Code Status on File) Date Activated Date Inactivated Comments 05/03/2013 9:31 AM * Full Code Date Activated Date Inactivated Comments 08/31/2011 12:22 PM 05/03/2013 9:31 AM * Full Code Date Activated Date Inactivated Comments 08/30/2011 6:38 PM 08/31/2011 12:22 PM Care Teams Paste Plant Supervisor Relationship Specialty Start [place] [address] [place] [address] PCP - General 12/15/17
--- OUTSIDE RECORDS SUMMARY | 2023-06-21 20:25 | XMS_ITS | Continuity of Care Document ---
Author Name Unknown Organization [facility] Address [address] [place] [address] Phone Care Team Providers Care Patient Services Rep Name Role Phone Marek MORTON, PhD, Hari Unavailable Unavai lable Allergies, Adverse Reactions, Alerts Substance Reaction Status Criticality No Known Allergies Active No Inform ation Medications Medication Instructions Dosage Effective Dates (start - stop) Status Comments SYNTHROID (unknown strength) Not Available - Active Procedures Procedure Date Office/Outpatient Visit,[facility] 2016 Advance Directives Directive Yes / No Effective Date File Name No Information Encounters Encounter Description Practice Location Reason(s) For Visit Diagnoses Date Provider Providers Copied on Encounter Office/Outpati ent Visit,[facility], [facility], [address], [place], [place], [id number], [place] tel:[phone] [facility] Pain in lt hip Marek Noriega. [facility], [address] [place] [address] [address], [place], [address], [place]. tel:[phone] Referring Provider: [facility] [address] [place], [address]. tel:[phone] [facility], [address], [place], [place], [id number], [place] tel:[phone] [facility] Low back pain Joseph Mario. [facility] [place], [address] [place] [address], [facility] [address], [place], [place], [address], . tel:[phone] Family History Family Member Type Diagnosis Age At Onset No Information Payers Payer name Insurance type Covered democrat ID Melba donato(s) [facility] [id number] Social History Type Description Quantity Date Captured [...]
--- OUTSIDE RECORDS SUMMARY | 2023-06-21 20:26 | XMS_ITS | Clinical Summary ---
Author Name Unknown Organization [facility] Address [place], [place] [address] Care Team Providers Care Pearl Digger Name Role Phone Monserrat Carey MD Primary Care Provider [phone] Allergies No known active allergies Medications Medication [...] Comments Blood Pressure 124/84 02/07/2020 12:31 PM BRIQUETTING MACHINE OPERATOR Pulse 72 02/07/2020 12:31 PM BRIQUETTING MACHINE OPERATOR Temperature 37.1 ??C (98.7 ??F) 01/28/2020 2:27 PM CS T Respiratory Rate 18 01/28/2020 2:27 PM BRIQUETTING MACHINE OPERATOR Oxygen Saturation 95% 01/28/2018 10:58 AM BRIQUETTING MACHINE OPERATOR Inhaled Oxygen Concentration - - Weight 97.3 kg (214 lb 9.6 oz) 02/07/2020 12:31 PM BRIQUETTING MACHINE OPERATOR Height 162.6 cm (5' 4) 01/28/2020 2:27 PM BRIQUETTING MACHINE OPERATOR Body Mass Index 36.84 01/28/2020 2:27 PM BRIQUETTING MACHINE OPERATOR Plan of Treatment Health Maintenance Due Date [...] MAMMO BILAT SCREENING Routine 12/31/2016 2:16 PM BRIQUETTING MACHINE OPERATOR Screening for breast cancer LIPID PANEL W REFLEX MEASURED LDL Routine 04/08/2016 8:40 AM BRIQUETTING MACHINE OPERATOR Hypothyroidism (acquired) SCAN-COLONOSCOPY 11/13/2015 8:30 AM CDT from Last 3 Months or Most Recently Relevant to Health Maintenance Results * XR MAMMO BILAT SCREENING (12/31/2016 2:16 PM BRIQUETTING MACHINE OPERATOR) Anatomical Region Laterality Modality BREASTS, Breast Left, Breast Right Bilateral Mammography Impressions 01/04/2017 8:38 AM BRIQUETTING MACHINE OPERATOR ??There is no radiographic evidence for malignancy. ??Recommend annual mammograms. A lay language report of this examination will be provided to the patient. MAMMOGRAM ASSESSMENT: ??ACR 1 Negative Narrative 01/04/2017 8:38 AM BRIQUETTING MACHINE OPERATOR XR MAMMO BILAT SCREENING [[id number]] CLINICAL HISTORY: ??This is an asymptomatic 61 [...] W REFLEX MEASURED LDL (04/08/2016 8:40 AM BRIQUETTING MACHINE OPERATOR) CHOLESTEROL,TOTAL 197 100 - 199 mg/dL 04/08/2016 2:30 PM BRIQUETTING MACHINE OPERATOR [facility] TRIGLYCERIDES 138 <150 mg/dL 04/08/2016 2:30 PM BRIQUETTING MACHINE OPERATOR [facility] HDL CHOLESTEROL 43 >40 mg/dL 7 2:30 PM BRIQUETTING MACHINE OPERATOR [facility] NON-HDL CHOLESTEROL 154(H) <145 mg/dl 04/08/2016 2:30 PM BRIQUETTING MACHINE OPERATOR [facility] CHOL/HDL RATIO 4.58(H) <4.50 04/08/2016 2:30 PM BRIQUETTING MACHINE OPERATOR [facility] LDL CHOLESTEROL 126 <=130 mg/dL 04/08/2016 2:30 PM BRIQUETTING MACHINE OPERATOR [facility] PATIENT STATUS FASTING 04/08/2016 2:30 PM BRIQUETTING MACHINE OPERATOR [facility] TR[facility] LAB[facility] Blood BLOOD SPECIMEN / Unknown Venipuncture / Unknown 04/08/2016 8:40 AM BRIQUETTING MACHINE OPERATOR 04/08/2016 8:40 AM BRIQUETTING MACHINE OPERATOR Monserrat Carey MD CHEMISTRY [facility] [address] [place] [address], [place] * SCAN-COLONOSCOPY (11/13/2015 8:30 AM CDT) Narrative Procedure Note Ashok Lynne MD - 11/13/2015 7:51 AM CDT [facility] [address] [facility], [address], [place] [address] Patient Name: Gabby Acosta Gender: Female Exam Date: 11/13/2015 Visit Number: [id number] Age: 59 Years Date of : 1955 Attending MD: Ashok Lynne MD Medical Record#: [id number] ----- Procedure: Colonoscopy Indications: Previous adenomatous polyp(s) [...] the use ofimmunohistochemistry that were performed by [facility] and whose performance characteristics were evaluated bypathologists from [facility]. These tests have not beencleared [...] Recently Relevant to Health Maintenance Care Teams Pearl Digger Relationship Specialty [place] [address] [place] [address] PCP - General Family Practice 11/10/15
--- OUTSIDE RECORDS SUMMARY | 2023-06-21 20:26 | XMS_ITS | Encounter Summary ---
Author Name Unknown Organization [facility] Address [address] [place] [address] Care Team Providers Care Php Developer Name Role Phone Kathia Forbes MD Primary Care Provider [phone] Benita Boss APRN [facility] Primary Care Provi manuel Monserrat Carey MD Primary Care Provider [phone] Encounter Details Date Type Department Care Team (Late st Contact Info) Description 05/27/2010 MyC Medical Advice [address] [phone] Kathia Forbes MD [address] [place] [phone] Social History Tobacco Use Types Packs/Day Years [...] on filedocumented in this encounter Care Teams Php Developer Relationship Specialty Start Date End Date Kathia Forbes MD PCP - General Family Practice 04/30/10 11/27/13 Benita Boss APRN [facility] PCP - General Nurse Practitioner - Family 11/28/13 1 [place] [address] [place] [address] PCP - General 12/15/17 documented as of this encounter
--- OUTSIDE RECORDS SUMMARY | 2023-06-21 20:26 | XMS_ITS | Encounter Summary ---
Author Name Unknown Organization [facility] Address [address] [place] [address] Care Team Providers Care Barrel Polisher Inside Name Role Phone Kathia Forbes MD Primary Care Provider [phone] Benita Boss APRN [facility] Primary Care Provi manuel Monserrat Carey MD Primary Care Provider [phone] Encounter Details Date Type Department Care Team (Late st Contact Info) Description 12/02/2010 MyC Medical Advice [address] [phone] Kathia Forbes MD [address] [place] [phone] Social History Tobacco Use Types Packs/Day Years [...] on filedocumented in this encounter Care Teams Barrel Polisher Inside Relationship Specialty Start Date End Date Kathia Forbes MD PCP - General Family Practice 04/30/10 11/27/13 Benita Boss APRN [facility] PCP - General Nurse Practitioner - Family 11/28/13 1 [place] [address] [place] [address] PCP - General 12/15/17 documented as of this encounter
--- OUTSIDE RECORDS SUMMARY | 2023-06-21 20:26 | XMS_ITS | Encounter Summary ---
Author Name Unknown Organization [facility] Address [address] [place] [address] Care Team Providers Care Bioinformatics Support Specialist Name Role Phone Kathia Forbes MD Primary Care Provider [phone] Benita Boss APRN [facility] Primary Care Provi manuel Monserrat Carey MD Primary Care Provider [phone] Encounter Details Date Type Department Care Team (Late st Contact Info) Description 06/07/2012 MyC Medical Advice [address] [address] Kathia Forbes MD [address] [place] [phone] Social History Tobacco Use Types Packs/Day Years [...] on filedocumented in this encounter Care Teams Bioinformatics Support Specialist Relationship Specialty Start Date End Date Kathia Forbes MD PCP - General Family Practice 04/30/10 11/27/13 Benita Boss APRN CNP PCP - General Nurse Practitioner - Family 11/28/13 1 [place] [address] [place] [address] PCP - General 12/15/17 documented as of this encounter
--- OUTSIDE RECORDS SUMMARY | 2023-06-21 20:26 | XMS_ITS | Encounter Summary ---
Author Name Unknown Organization [facility] Address [address] [place] [address] Care Team Providers Care Coal Cutter Name Role Phone Kathia Forbes MD Primary Care Provider [phone] Benita Boss APRN [facility] Primary Care Provi manule Monserrat Carey MD Primary Care Provider [phone] Encounter Details Date Type Department Care Team (Late st Contact Info) Description 06/14/2011 [facility] [address] [address] [facility] Social History Tobacco Use Types Packs/Day Years [...] on filedocumented in this encounter Care Teams Coal Cutter Relationship Specialty Start Date End Date Kathia Forbes MD PCP - General Family Practice 04/30/10 11/27/13 Benita Boss APRN CNP PCP - General Nurse Practitioner - Family 11/28/13 1 [place] [address] [place] [address] PCP - General 12/15/17 documented as of this encounter
--- OUTSIDE RECORDS SUMMARY | 2023-06-21 20:26 | XMS_ITS | Encounter Summary ---
Author Name Unknown Organization [facility] Address [address] [place] [address] Care Team Providers Care Wind Turbine Service Technician Name Role Phone Kathia Forbes MD Primary Care Provider [phone] Benita Boss APRN [facility] Primary Care Provi manuel Monserrat Carey MD Primary Care Provider [phone] Encounter Details Date Type Department Care Team (Late st Contact Info) Description 06/20/2010 MyC Medical Advice [address] [address] Kathia Forbes MD [address] [place] [phone] Social History Tobacco Use Types Packs/Day Years [...] on filedocumented in this encounter Care Teams Wind Turbine Service Technician Relationship Specialty Start Date End Date Kathia Forbes MD PCP - General Family Practice 04/30/10 11/27/13 Benita Boss APRN [facility] PCP - General Nurse Practitioner - Family 11/28/13 1 [place] [address] [place] [address] PCP - General 12/15/17 documented as of this encounter
--- OUTSIDE RECORDS SUMMARY | 2023-06-21 20:26 | XMS_ITS | Encounter Summary ---
Author Name Unknown Organization [facility] Address [facility] [place] [address] Care Team Providers Care Concrete Finisher Name Role Phone Benita Boss APRN DOUBLE [employer]ENONER [facility] Primary Care Provi manuel Monserrat Carey MD Primary Care Provider [phone] Reason for Visit * Reason Onset Date Comments Refill Request 02/26/2015 Ambien Encounter Details Date Type Department Care Team (Late st Contact Info) Description 02/26/2015 MyC Refill [address] [address] Benita Boss APRN DOUBLE END TENONER SETTER [address] [place], [place] [phone] Refill Request (Ambien) Social History Tobacco Use [...] # refills: 3 Last Office Visit with [facility] primary care provider: 12/31/2014 Future Office visit: Routing refill request to provider for review/approval because: Drug not on the [facility] refill protocol or controlled substance S SALESMAN * Telephone Encounter - Bebe Elizondo - 02/26/2015 1:38 PM CSTMessage from [facility]: Original authorizing provider: BRI Ramírez CNP would like a refill of the following medications: zolpidem (AMBIEN) 5 MG tablet [Benita Boss APRN CNP] Preferred pharmacy: [id number] - [facility] [address] Comment: S SALESMAN documented in this encounter Plan of Treatment Not on file documented as of this encounter Visit Diagnoses Diagnosis Persistent disorder of initiating or maintaining sleep documented in this encounter Additional Health Concerns Assessment Noted Time PHQ-9 Depression Total Score: 12 015 7:28 AM PARTS SALESMAN documented as of this encounter Care Teams Concrete Finisher Relationship Specialty Start Date End Date Benita Boss APRN CNP PCP - General Nurse Practitioner - Family 11/28/13 1 [place] [address] [place] [address] PCP - General 12/15/17 documented as of this encounter
--- OUTSIDE RECORDS SUMMARY | 2023-06-21 20:26 | XMS_ITS | Encounter Summary ---
Author Name Unknown Organization [place] Address [facility] [place] [address] Care Team Providers Care Mash Tub Cooker Operator Name Role Phone Kathia Forbes MD Primary Care Provider [phone] Benita Boss APRN [facility] Primary Care Provi manuel Monserrat Carey MD Primary Care Provider [phone] Reason for Visit * Reason Onset Date Comments MyChart Communication 11/06/2012 Encounter Details Date Type Department Care Team (Latest Contact Info) Description 11/06/2012 MyC Medical Advice [address] [address] Kathia Forbes MD [address] [place] [address] MyChart Communication Social History Tobacco Use [...] on filedocumented in this encounter Care Teams Mash Tub Cooker Operator Relationship Specialty Start Date End Date Kathia Forbes MD PCP - General Family Practice 04/30/10 11/27/13 Benita Boss APRN CNP PCP - General Nurse Practitioner - Family 11/28/13 [address] [place] [address] [place] [address] PCP - General 12/15/17 documented as of this encounter
--- OUTSIDE RECORDS SUMMARY | 2023-06-21 20:26 | XMS_ITS | Encounter Summary ---
Author Name Unknown Organization [place] Address [address] [place] [address] Care Team Providers Care Coding Consultant Name Role Phone Kathia Forbes MD Primary Care Provider [phone] Benita Boss APRN [facility] Primary Care Provi manuel Monserrat Carey MD Primary Care Provider [phone] Reason for Visit * Reason Onset Date Comments MyChart Communication 04/23/2012 Re: Synthr oid 150 mcg Encounter Details Date Type Department Care Team (Latest Contact Info) Description 04/23/2012 MyC Medical Advice [address] [address] Kathia Forbes MD [address] [place] [address] MyChart Communication (Re: Synthroid 150 mcg) [...] on filedocumented in this encounter Care Teams Coding Consultant Relationship Specialty Start Date End Date Kathia Forbes MD PCP - General Family Practice 04/30/10 11/27/13 Benita Boss APRN ACCOUNT AUDITOR PCP - General Nurse Practitioner - Family 11/28/13 [address] [place] [address] [place] [address] PCP - General 12/15/17 documented as of this encounter
--- OUTSIDE RECORDS SUMMARY | 2023-06-21 20:26 | XMS_ITS | Encounter Summary ---
Author Name Unknown Organization [place] Address [address] [place] [address] Care Team Providers Care Wash Tub Machine Operator Name Role Phone Kathia Forbes MD Primary Care Provider [phone] Benita Boss APRN [facility] Primary Care Provi manuel Monserrat Carey MD Primary Care Provider [phone] Encounter Details Date Type Department Care Team (Late st Contact Info) Description 11/12/2010 MyC Medical Advice [address] [address] Kathia Forbes MD [address] [place] [phone] Social History Tobacco Use Types Packs/Day Years [...] on filedocumented in this encounter Care Teams Wash Tub Machine Operator Relationship Specialty Start Date End Date Kathia Forbes MD PCP - General Family Practice 04/30/10 11/27/13 Benita Boss APRN [facility] PCP - General Nurse Practitioner - Family 11/28/13 1 [place] [address] [place] [address] PCP - General 12/15/17 documented as of this encounter
--- OUTSIDE RECORDS SUMMARY | 2023-06-21 20:26 | XMS_ITS | Encounter Summary ---
Author Name Unknown Organization [place] Address [facility] [place] [address] Care Team Providers Care Sample Case Porter Name Role Phone Benita Boss APRN, CNP Primary Care Provi manuel Monserrat Carey MD Primary Care Provider [phone] Encounter Details Date Type Department Care Team (Late st Contact Info) Description 05/16/2014 MyC Medical Advice [address] [address] Benita Boss APRN LABORATORY ANALYST [address] [place] [address] Social History Tobacco Use Types Packs/Day Years [...] on filedocumented in this encounter Care Teams Sample Case Porter Relationship Specialty Start Date End Date Benita Boss APRN LABORATORY ANALYST PCP - General Nurse Practitioner - Family 11/28/13 1 [place] [address] [place] [address] PCP - General 12/15/17 documented as of this encounter
--- OUTSIDE RECORDS SUMMARY | 2023-06-21 20:26 | XMS_ITS | Encounter Summary ---
Author Name Unknown Organization [place] Address [address] [place] [address] Care Team Providers Care Coordinate Measuring Machine Programmer Name Role Phone Kathia Forbes MD Primary Care Provider [phone] Benita Boss APRN [facility] Primary Care Provi manuel Monserrat Carey MD Primary Care Provider [phone] Encounter Details Date Type Department Care Team (Late st Contact Info) Description 12/02/2010 MyC Medical Advice [address] [address] Kathia Forbes MD [address] [place] [phone] Social History Tobacco Use Types Packs/Day Years [...] on filedocumented in this encounter Care Teams Coordinate Measuring Machine Programmer Relationship Specialty Start Date End Date Kathia Forbes MD PCP - General Family Practice 04/30/10 11/27/13 Benita Boss APRN [facility] PCP - General Nurse Practitioner - Family 11/28/13 1 [place] [address] [place] [address] PCP - General 12/15/17 documented as of this encounter
--- OUTSIDE RECORDS SUMMARY | 2023-06-21 20:26 | XMS_ITS | Encounter Summary ---
Author Name Unknown Organization [place] Address [facility] [place] [address] Care Team Providers Care Label Rewinder Name Role Phone Kathia Forbes MD Primary Care Provider [phone] Benita Boss APRN [facility] Primary Care Provi manuel Monserrat Carey MD Primary Care Provider [phone] Reason for Referral * Specialty Diagnoses / Procedures Referred By Contac t Referred To Contact Kathia Forbes MD [address] [place] [address] Referral ID Status Reason Start Date Expiration Date Visits Re quested Visits Authorized Encounter Details Date Type Department Care Team (Late st Contact Info) Description 05/06/2010 Abstract [facility] [address] [place] [id number] Kathia Forbes MD [address] [place] [address] Special screening for malignant neoplasms, colon [...] Primary documented in this encounter Care Teams Label Rewinder Relationship Specialty Start Date End Date Kathia Forbes MD PCP - General Family Practice 04/30/10 11/27/13 Benita Boss APRN PROJECT CONTROL OFFICER PCP - General Nurse Practitioner - Family 11/28/13 [address] [place] [address] [place] [address] PCP - General 12/15/17 documented as of this encounter
--- OUTSIDE RECORDS SUMMARY | 2023-06-21 20:26 | XMS_ITS | Encounter Summary ---
Author Name Unknown Organization [place] Address [address] [place] [address] Care Team Providers Care See Wheeler Name Role Phone Benita Boss APRN, CNP Primary Care Provi manuel Monserrat Carey MD Primary Care Provider [phone] Encounter Details Date Type Department Care Team (Late st Contact Info) Description 06/26/2015 MyC Medical Advice [address] [address] Shayy Powers APRN [facility] [address] [address] [place] [address] Social History Tobacco Use Types Packs/Day Years [...] documented as of this encounter Care Teams See Wheeler Relationship Specialty Start Date End Date Benita Boss APRN [facility] PCP - General Nurse Practitioner - Family 11/28/13 1 [place] [address] [place] [address] PCP - General 12/15/17 documented as of this encounter
--- OUTSIDE RECORDS SUMMARY | 2023-06-21 20:26 | XMS_ITS | Encounter Summary ---
Author Name Unknown Organization [place] Address [address] [place] [address] Care Team Providers Care Sewer Pipe Layer Name Role Phone Kathia Forbes MD Primary Care Provider [phone] Benita Boss APRN [facility] Primary Care Provi manuel Monserrat Carey MD Primary Care Provider [phone] Encounter Details Date Type Department Care Team (Late st Contact Info) Description 12/22/2010 MyC Medical Advice [address] [address] Kathia Forbes MD [address] [place] [phone] Social History Tobacco Use Types Packs/Day Years [...] on filedocumented in this encounter Care Teams Sewer Pipe Layer Relationship Specialty Start Date End Date Kathia Forbes MD PCP - General Family Practice 04/30/10 11/27/13 Benita Boss APRN [facility] PCP - General Nurse Practitioner - Family 11/28/13 [address] [place] [address] [place] [address] PCP - General 12/15/17 documented as of this encounter
--- OUTSIDE RECORDS SUMMARY | 2023-06-21 20:26 | XMS_ITS | Encounter Summary ---
Author Name Unknown Organization [place] Address [address] [place] [address] Care Team Providers Care Operations General Agent Name Role Phone Kathia Forbes MD Primary Care Provider [phone] Benita Boss APRN [facility] Primary Care Provi manuel Monserrat Carey MD Primary Care Provider [phone] Encounter Details Date Type Department Care Team (Late st Contact Info) Description 06/07/2011 MyC Medical Advice [address] [address] Kathia Forbes MD [address] [place] [phone] Social History Tobacco Use Types Packs/Day Years [...] on filedocumented in this encounter Care Teams Operations General Agent Relationship Specialty Start Date End Date Kathia Forbes MD PCP - General Family Practice 04/30/10 11/27/13 Benita Boss APRN CNP PCP - General Nurse Practitioner - Family 11/28/13 1 [place] [address] [place] [address] PCP - General 12/15/17 documented as of this encounter
--- OUTSIDE RECORDS SUMMARY | 2023-06-21 20:26 | XMS_ITS | Encounter Summary ---
Author Name Unknown Organization [place] Address [address] [place] [address] Care Team Providers Care Manager Lan Name Role Phone Kathia Forbes MD Primary Care Provider [phone] Benita Boss APRN [facility] Primary Care Provi manuel Monserrat Carey MD Primary Care Provider Encounter Details Date Type Department Care Team (Late st Contact Info) Description 10/25/2012 MyC Medical Advice [address] [address] Kathia Forbes MD [address] [place] [phone] Social History Tobacco Use Types Packs/Day Years [...] on filedocumented in this encounter Care Teams Manager Lan Relationship Specialty Start Date End Date Kathia Forbes MD PCP - General Family Practice 04/30/10 11/27/13 Benita Boss APRN CNP PCP - General Nurse Practitioner - Family 11/28/13 1 [place] [address] [place] [address] PCP - General 12/15/17 documented as of this encounter
--- OUTSIDE RECORDS SUMMARY | 2023-06-21 20:26 | XMS_ITS | Encounter Summary ---
Author Name Unknown Organization [place] Address [address] [place] [address] Care Team Providers Care Computer Numeric Control Setter Name Role Phone Kathia Forbes MD Primary Care Provider [phone] Benita Boss APRN [facility] Primary Care Provi manuel Monserrat Carey MD Primary Care Provider [phone] Encounter Details Date Type Department Care Team (Late st Contact Info) Description 06/12/2010 MyC Medical Advice [address] [address] Kathia Forbes MD [address] [place] [phone] Social History Tobacco Use Types Packs/Day Years [...] on filedocumented in this encounter Care Teams Computer Numeric Control Setter Relationship Specialty Start Date End Date Kathia Forbes MD PCP - General Family Practice 04/30/10 11/27/13 Benita Boss APRN [facility] PCP - General Nurse Practitioner - Family 11/28/13 1 [place] [address] [place] [address] PCP - General 12/15/17 documented as of this encounter
--- OUTSIDE RECORDS SUMMARY | 2023-06-21 20:26 | XMS_ITS | Encounter Summary ---
Author Name Unknown Organization [place] Address [facility] [place] [address] Care Team Providers Care Cylinder Block Mechanic Name Role Phone Kathia Forbes MD Primary Care Provider [phone] Benita Boss APRN [facility] Primary Care Provi manuel Monserrat Carey MD Primary Care Provider [phone] Reason for Visit * Reason Onset Date Comments MyChart Communication 05/05/2011 TSH Encounter Details Date Type Department Care Team (Latest Contact Info) Description 05/05/2011 MyC Medical Advice [address] [address] Kathia Forbes MD [address] [place] [address] MyChart Communication (TSH) Social History Tobacco [...] on filedocumented in this encounter Care Teams Cylinder Block Mechanic Relationship Specialty Start Date End Date Kathia Forbes MD PCP - General Family Practice 04/30/10 11/27/13 Benita Boss APRN CNP PCP - General Nurse Practitioner - Family 11/28/13 1 [place] [address] [place] [address] PCP - General 12/15/17 documented as of this encounter
--- OUTSIDE RECORDS SUMMARY | 2023-06-21 20:26 | XMS_ITS | Encounter Summary ---
Author Name Unknown Organization [place] Address [address] [place] [address] Care Team Providers Care Rn Transport Name Role Phone Kathia Forbes MD Primary Care Provider [phone] Benita Boss APRN [facility] Primary Care Provi manuel Monserrat Carey MD Primary Care Provider [phone] Encounter Details Date Type Department Care Team (Late st Contact Info) Description 12/03/2010 MyC Medical Advice [address] [address] Kathia Forbes MD [address] [place] [phone] Social History Tobacco Use Types Packs/Day Years [...] on filedocumented in this encounter Care Teams Rn Transport Relationship Specialty Start Date End Date Kathia Forbes MD PCP - General Family Practice 04/30/10 11/27/13 Benita Boss APRN [facility] PCP - General Nurse Practitioner - Family 11/28/13 1 [place] [address] [place] [address] PCP - General 12/15/17 documented as of this encounter
--- OUTSIDE RECORDS SUMMARY | 2023-06-21 20:26 | XMS_ITS | Encounter Summary ---
Author Name Unknown Organization [place] Address [address] [place] [address] Care Team Providers Care Wellness Trainer Name Role Phone Kathia Forbes MD Primary Care Provider [phone] Benita Boss APRN [facility] Primary Care Provi manuel Monserrat Carey MD Primary Care Provider [phone] Encounter Details Date Type Department Care Team (Late st Contact Info) Description 06/07/2012 MyC Medical Advice [address] [address] Kathia Forbes MD [address] [place] [address] [phone] Social History Tobacco Use Types Packs/Day Years [...] on filedocumented in this encounter Care Teams Wellness Trainer Relationship Specialty Start Date End Date Kathia Forbes MD PCP - General Family Practice 04/30/10 11/27/13 Benita Boss APRN CNP PCP - General Nurse Practitioner - Family 11/28/13 1 [place] [address] [place] [address] PCP - General 12/15/17 documented as of this encounter
--- OUTSIDE RECORDS SUMMARY | 2023-06-21 20:26 | XMS_ITS | Encounter Summary ---
Author Name Unknown Organization [place] Address [facility] [place] [address] Care Team Providers Care Note Specialist Name Role Phone Kathia Forbes MD Primary Care Provider Benita Boss APRN [facility] Primary Care Provi manuel Monserrat Carey MD Primary Care Provider [phone] Reason for Visit * Reason Onset Date Comments MyChart Communication 11/19/2013 Encounter Details Date Type Department Care Team (Latest Contact Info) Description 11/19/2013 MyC Medical Advice [address] [address] Kathia Forbes MD [address] [place] [address] MyChart Communication Social History Tobacco Use [...] on filedocumented in this encounter Care Teams Note Specialist Relationship Specialty Start Date End Date Kathia Forbes MD PCP - General Family Practice 04/30/10 11/27/13 Benita Boss APRN CAD ENGINEER PCP - General Nurse Practitioner - Family 11/28/13 1 [place] [address] [place] [address] PCP - General 12/15/17 documented as of this encounter
== END 2023-06-21 20:25 | disposition home or self-care (01) ==
LOC: ED 20:24
PROVIDERS: Emergency Provider Emergency Medicine; PCP Physician Assistant Medical
DX: K08.89 Other specified disorders of teeth and supporting structures (principal)
CPT/HCPCS: 99282; 99283

== ENCOUNTER 2024-07-10 07:40 | Outpatient (CLI) | payer MEDICARE, SELFPAY | END 2024-07-10 07:41 | disposition home or self-care (01) | LOC: NFLDREF 07-12 09:06 | PROVIDERS: PCP Physician Assistant Medical; Referring Provider Physician Assistant Medical; Visit Provider Physician Assistant Medical | DX: E78.2 Mixed hyperlipidemia (principal); E03.9 Hypothyroidism, unspecified; I10 Essential (primary) hypertension; R63.5 Abnormal weight gain | CPT/HCPCS: 80061; 84439; 84443; 84450; 84460 ==

== ENCOUNTER 2024-07-11 10:14 | Day surgery (SDC) | payer MEDICARE, SELFPAY ==
[2024-07-11] VITALS (25 sets, daily range): BP systolic 94–119; BP diastolic 50–75; PULSE 61–77; RESP 14–18; TEMP 35.9–36.8; O2SAT 88–95; BMI 38.9
[2024-07-11] MEDS: ACETAMINOPHEN 500 MG TABLET 1000 MG PO ×3 (10:40→23:47)
[2024-07-11] MEDS: SODIUM CHLORIDE 0.9 % (FLUSH) 10 ML SYRINGE IVF (10:50)
[2024-07-11] MEDS: LACTATED RINGERS 1000 ML 1,000 ML 100 ML IV (10:50)
[2024-07-11] MEDS: OXYCODONE (CR) 10 MG TAB.ER.12H PO (10:50)
--- NOTE | 2024-07-11 11:10 | SUR.PREOP ---
TIME?OUT:?1111 PT/RN/MDA?VERIFICATION?OF?SURGICAL?SITE,?PROCEDURE,?AND?CONSENT OBTAINED?PRIOR?TO?INVASIVE?PROCEDURE.
[2024-07-11] MEDS: MIDAZOLAM HCL 1 MG/ML inj IVP (11:13)
[2024-07-11] MEDS: fentaNYL 100 MCG/2 ML inj IVP (11:13)
--- NOTE | 2024-07-11 11:24 | SUR.OPER ---
PATIENT QUESTIONS ANSWERED SATISFACTORILY PREOPERATIVELY.? PATIENT BROUGHT TO OR #2 PER CART AFTER ADMINISTRATION OF A BLOCK.? Patient positioned supine on OR #2 bed.? The perioperative?team supported arms bilaterally on arm boards.? Final approval of positioning by surgeon.?
--- NOTE | 2024-07-11 11:26 | P.NB_ITS ---
Nerve Block Nerve Block Time Seen by Provider: 11:15 Date Seen: 07/11/24 Type of block requested by surgeon for post-operative analgesia: adductor canal Time out performed: Yes Verification of patient name: Yes Verification of date of : Yes Site marking: site marked Name of person performing procedure: Turner Continuous monitoring Was continuous monitoring of O2 sat, B/P, clinical research monitor, recorded every 15 minutes?: Yes Procedure Checklist: sterile prep, needles and gloves Ultrasound guided. Images saved: Yes Medications given in 5ml increments after negative aspiration: Marcaine %: 0.25 mL: 15 Needle gauge: 20 Precedex (mcg): 25 Patient tolerated procedure well: Yes Block Charges Block Charge (with Pro Fee): Femoral Nerve Use of Ultrasound Machine for Block: Yes- US Guidance/pain block
--- NOTE | 2024-07-11 11:26 | P.NB_ITS ---
Nerve Block Nerve Block Time Seen by Provider: 11:15 Date Seen: 07/11/24 Type of block requested by surgeon for post-operative analgesia: geniculars Side: left Time out performed: Yes Verification of patient name: Yes Verification of date of : Yes Site marking: site marked Name of person performing procedure: Turner Continuous monitoring Was continuous monitoring of O2 sat, B/P, compliance monitor, recorded every 15 minutes?: Yes Procedure Checklist: sterile prep, needles and gloves Ultrasound guided. Images saved: Yes Medications given in 5ml increments after negative aspiration: Marcaine %: 0.25 mL: 9 Needle gauge: 25 Patient tolerated procedure well: Yes Block Charges Block Charge (with Pro Fee): Genicular Nerve Block
--- NOTE | 2024-07-11 11:26 | P.ANES_ITS ---
Anesthesia Charges Start Date/Time Anesthesia Start Date: 07/11/24 Anesthesia Start Time: 11:50 Stop Date/Time Anesthesia Stop Date: 07/11/24 Anesthesia Stop Time: 14:25 Coding CPT Codes CPT Codes: ANESTH KNEE ARTHROPLASTY - 47495 ([id number]) P3 - PATIENT W/SEVERE SYS DISEASE, QK - WINDOW SASH INSTALLER 2-4 CNCRNT ANES PROC, QX - AREA MANAGER SVC W/ MD MED DIRECTION
--- NOTE | 2024-07-11 11:26 | W.ANESCHARGE ---
Anesthesia Charges Start Date/Time Anesthesia Start Date: 07/11/24 Anesthesia Start Time: 11:50 Stop Date/Time Anesthesia Stop Date: 07/11/24 Anesthesia Stop Time: 14:25 Coding CPT Codes CPT Codes: ANESTH KNEE ARTHROPLASTY - 85780 ([id number]) P3 - PATIENT W/SEVERE SYS DISEASE, QK - EQUIPMENT ENGINEER 2-4 CNCRNT ANES PROC, QX - STATION INSPECTOR SVC W/ MD MED DIRECTION
--- NOTE | 2024-07-11 12:11 | CRLHL7_ITS ---
For Patients: As a result of the Cures Act, medical imaging exams and procedure reports are released immediately into your electronic medical record. You may view this report before your referring provider. If you have questions, please contact your health care provider. Indication: Postop. Technique: AP and lateral views. Comparison: Left knee radiograph 06/07/2024. Findings: A 3 component left knee arthroplasty has been placed since the previous study. Components appear well-positioned. There are postsurgical changes within the soft tissues of the left knee. No other retained radiopaque metallic surgical foreign body. Impression: Status post knee replacement. Dictated by Kalia Mendoza MD @ 07/12/2024 10:50:21 AM (Electronically Signed)
[2024-07-11] MEDS: TRANEXAMIC ACID 100 MG/ML INJ 1000 MG IV (12:24)
[2024-07-11] MEDS: CEFAZOLIN 1 GM inj IVP (12:24)
--- NOTE | 2024-07-11 13:32 | PM.ORPRC ---
Procedure Note Date of procedure: 07/11/24 Procedure: PREOPERATIVE DIAGNOSIS: 1. Left knee osteoarthritis, primary, severe POSTOPERATIVE DIAGNOSIS: 1. Left knee osteoarthritis, primary, severe PROCEDURE: 1. Left total knee arthroplasty - subvastus SURGEON: Asaf Kaye MD. MANAGER OF CUSTOMER BILLING: Duane Greene PA-C - Of note, a skilled community program assistant was critical for this case to aid in patient positioning, tissue retraction, limb manipulation/positioning, and closure. ANESTHESIA: Spinal anesthetic EBL: 50ml IMPLANTS: DePuy J&J all cemented TKA - Attune PS femur size 6 narrow Size 4 tibia 5 poly spacer 32 mm patella TOURNIQUET: 80 minutes at 300 torr COMPLICATIONS: None evident INDICATIONS: The patient is a pleasant 68-year-old female who has experienced severe left knee pain and difficulty bearing weight. Workup included x-rays which revealed severe osteoarthrosis in the knee. Given the deformity, the dysfunction, and the pain, as well as the failure of nonoperative management, recommendation was made for surgery. FINDINGS: Full-thickness chondral loss diffusely throughout the medial and to a lesser degree patellofemoral and lateral compartments. Degenerative meniscus pathology medial greater than lateral. Moderate effusion upon entering the joint. DESCRIPTION OF PROCEDURE: Following a thorough discussion of risks, benefits, and alternatives consent was obtained and the left knee was marked. The patient was brought to the operating room and placed supine on the operating table. Induction of anesthesia was undertaken. 2 g IV Ancef and 1 g tranexamic acid was administered within 1 hr of incision preoperatively. Proper time-out was performed identifying proper patient, site, procedure. The operative extremity was prepped and draped in the appropriate sterile fashion using ChloraPrep after the patient was positioned supine with all bony prominences well padded. A longitudinal, anterior, midline skin incision was made starting approximately 3cm proximal to the superior pole of the patella and advanced distal to the tibial tubercle. A subvastus approach was utilized. A medial subperiosteal sleeve was created with knife, marlow elevator and curved osteotome. The retropatellar fatpad was resected and the synovium in the suprapatellar pouch excised to visualize the anterior femoral cortex. Femoral preparation was performed via an intramedullary guide. Step drill allowed access into the femoral canal. The distal cutting guide was placed with 5? of valgus and 10 mm cut on the distal femur. Femur was sized using a posterior referencing guide in 3? of external rotation. This found have a best fit with the sizing noted above. The 4 in 1 cutting block was then placed, and the distal femur shaped accordingly. The box cut was then created and the trial implant inserted to confirm appropriate fit. We turned our attention to the proximal tibia. Extramedullary guide was utilized for cutting with the goal of being 90 degree cut from the mechanical axis of the tibia in the varus/valgus plane utilizing tibial crest as the primary alignment. Initially a 3 mm resection was performed from the medial tibial plateau. Ultimately, balancing was achieved in both flexion and extension in both varus and valgus. The knee was able to achieve full extension as well comfortably. The patella was initially measured and found have a thickness of 24 mm. It was resected back to approximately 14 mm. It was sized to be a best fit with as noted above. This was drilled, trial placed. All trials were placed and found to have an excellent stability and balance. At this stage, trial implants were removed, the knee was thoroughly irrigated with normal saline, and the cement was mixed. After irrigation, the knee was thoroughly dried, and cement placed, with the real tibial and femoral implants placed along with the patella. Trial poly spacer was placed and confirmed to have excellent range of motion and full extension, and the real poly spacer opened and inserted. All extra cement was removed, and a 3 min Betadine soak performed. Finally, a final irrigation round with normal saline was performed. Closure performed with 0 PDS and #0 Stratafix for the quad tendon/retinaculum. 2-0 Vicryl/Stratafix for the subcutaneous and 4-0 Monocryl for subcuticular closure. Dressings were applied and the patient was awoken from anesthesia after the tourniquet deflated and transferred the PACU in stable condition. A skilled community program assistant was critical for this case to aid in patient positioning, tissue retraction, bone exposure, limb manipulation/positioning, patient safety, and closure. PLAN: 1. Weight bear as tolerated operative extremity. 2. 23 hr perioperative antibiotics. 3. Ice. 4. PT/OT consults for ambulation assistance/mobility education. 5. Social work consult for discharge planning. 6. DVT prophylaxis with at SCDs and aspirin twice daily.
--- NOTE | 2024-07-11 14:26 | P.ANES_ITS ---
Anesthesia Charges Start Date/Time Anesthesia Start Date: 07/11/24 Anesthesia Start Time: 11:50 Stop Date/Time Anesthesia Stop Date: 07/11/24 Anesthesia Stop Time: 14:25 Coding CPT Codes CPT Codes: ANESTH KNEE ARTHROPLASTY - 58724 ([id number]) P3 - PATIENT W/SEVERE SYS DISEASE, QK - DECAL DECORATOR 2-4 CNCRNT ANES PROC, QX - UNPAID INTERN SVC W/ MD MED DIRECTION
--- NOTE | 2024-07-11 14:26 | W.ANESCHARGE ---
Anesthesia Charges Start Date/Time Anesthesia Start Date: 07/11/24 Anesthesia Start Time: 11:50 Stop Date/Time Anesthesia Stop Date: 07/11/24 Anesthesia Stop Time: 14:25 Coding CPT Codes CPT Codes: ANESTH KNEE ARTHROPLASTY - 65836 ([id number]) P3 - PATIENT W/SEVERE SYS DISEASE, QK - CONGRESSIONAL AIDE 2-4 CNCRNT ANES PROC, QX - INTEGRATED CIRCUIT DESIGN ENGINEER SVC W/ MD MED DIRECTION
[2024-07-11] MEDS: fentaNYL 100 MCG/2 ML inj 50 MCG IVP ×2 (14:35→14:45)
[2024-07-11] MEDS: OXYCODONE 5 MG TABLET PO ×2 (15:51→20:41)
[2024-07-11] MEDS: LACTATED RINGERS 1000 ML 1,000 ML 75 ML IV (15:52)
--- NOTE | 2024-07-11 17:28 | PM.IMCN1 ---
Date of Consult Patient: [facility] Patient Consult date: 07/11/24 Requesting Physician: Orthopedics Primary Care Provider: Bharati Carey PA-C Consult Narrative Reason for consult: Medical management Narrative: Gabby Acosta is a 68 year old female past medical history significant for hypertension, hyperlipidemia, hypothyroidism, anxiety and depression, HOOD on CPAP, insomnia is POD#1 s/p left total knee arthroplasty, Dr. Bailey. There have been no perioperative complications or nursing concerns reported. Estimated total blood loss documented as 50 ml. Updated and reviewed the active medical problems, past medical history, past surgical history, social history, allergies and medications in our electronic EMR. Postoperatively, patient is seen with at bedside. Reports feeling well. Pain is currently well managed. Denies headache or dizziness. Denies chest pain or shortness of breath. Tolerating orals without nausea vomiting. Review of Systems Narrative: REVIEW OF SYSTEMS: Complete review of systems performed and negative unless otherwise stated in HPI or below. PFSH [facility] Medical History (Updated 07/11/24 @ 17:32 by Marilyn Bennett PA-C) Osteoarthritis of left knee ?M17.12 - Unilateral primary osteoarthritis, left knee (ICD-10) Abscess of prepatellar region ?L02.419 - Cutaneous abscess of limb, unspecified (ICD-10) History of fracture ?Z87.81 - Personal history of (healed) traumatic fracture (ICD-10) Surgical History History of left knee surgery (04/09/20) ?Z98.890 - Other specified postprocedural states (ICD-10) H/O arthroscopy of right knee (08/06/20) ?Z98.890 - Other specified postprocedural states (ICD-10) History of colonoscopy ?Z98.890 - Other specified postprocedural states (ICD-10) History of section ?Z98.891 - History of uterine scar from previous surgery (ICD-10) 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) ?Z96.642 - Presence of left artificial hip joint (ICD-10) History of arthroplasty of right knee (12/22/20) ?Z96.651 - Presence of right artificial knee joint (ICD-10) History of sleeve gastrectomy ?Z90.3 - Acquired absence of stomach [part of] (ICD-10) History of bilateral breast reduction surgery ?Z98.890 - Other specified postprocedural states (ICD-10) History of cholecystectomy ?Z90.49 - Acquired absence of other specified parts of digestive tract (ICD-10) Family History Father Prostate cancer, Onset Age: 93 Other Stroke Social History Narrative: Not current smoker What is your current living situation?: I presently have a place to live Problems where you live: no known problems In the past 12 months, utilities in danger of being shut off: no In past 12 months, lack of transportation kept you from medical appts, meetings, work, or getting things needed for daily living: no In the past 12 mos, have been you worried that your food would run out before you had money to buy more?: never true In the past 12 mos, the food you bought just didn't last and you didn't have money to buy more?: never true Highest level of school completed/degree received: some college, no degree Smoking Status: Never smoker Do you use any of these nicotine containing products: None Second hand tobacco smoke exposure: No How often do you have a drink containing alcohol: never How often do you have six or more drinks on one occasion: Never AUDIT-C Alcohol total score: 0 Non-prescribed substance use: denies use Caffeine: Yes How often does anyone, including family, friends and others, physically hurt you: never How often does anyone, including family, friends and others, insult or talk down to you: never How often does anyone, including family, friends and others, threaten you with harm: never How often does anyone, including family, friends and others, scream or curse at you: never service: No Meds Home Medications and Allergies Home Medications ?Medication ?Instructions ?Recorded ?Confirmed ?Type cholecalciferol (vitamin D3) 50 2,000 unit PO HS 08/27/21 07/11/24 History mcg (2,000 unit) tablet cyclosporine 0.05 % eye drops 1 drp ophthalmic (eye) BID 08/27/21 07/11/24 History famotidine 20 mg tablet 20 mg PO HS 08/27/21 07/11/24 History celecoxib 200 mg capsule 200 mg PO DAILY #90 caps 07/10/24 07/11/24 Rx losartan 50 mg tablet 50 mg PO DAILY #90 tabs 07/10/24 07/11/24 Rx acetaminophen 500 mg capsule 500 - 1,000 mg (1 - 2 x 500 mg) PO 07/11/24 Rx Q6H PRN #100 caps amlodipine 5 mg tablet 5 mg PO DAILY 07/11/24 07/11/24 History aspirin 81 mg tablet,delayed 81 mg PO BID #60 tabs 07/11/24 Rx release clonazepam 0.5 mg tablet 0.25 mg PO HS PRN insomnia 07/11/24 07/11/24 History levothyroxine 175 mcg tablet 175 mcg PO DAILY 07/11/24 07/11/24 History oxycodone 5 mg tablet 2.5 - 5 mg (0.5 - 1 x 5 mg) PO 07/11/24 Rx Q4-6H PRN pain #42 tabs rosuvastatin 20 mg tablet 20 mg PO HS 07/11/24 07/11/24 History sennosides 8.6 mg-docusate sodium 1 - 4 tab-cap (1 - 4 x 8.6-50 mg) 07/11/24 Rx 50 mg tablet (Senna-S) PO BID PRN constipation #60 tabs sertraline 100 mg tablet 200 mg PO DAILY 07/11/24 07/11/24 History trazodone 50 mg tablet 50 - 150 mg PO HS PRN for insomnia 07/11/24 07/11/24 History Allergies Allergy/AdvReac Type Severity Reaction Status Date / Time NSAIDS (Non-Steroidal Allergy Severe Hx of Verified 07/11/24 10:47 Anti-Inflamma bypass Exam Narrative: Exam Narrative: PHYSICAL EXAM General: Pleasant, conversant, NAD HEENT: Normocephalic, atraumatic, sclera white, EOMI, oral mucosa moist Cardiovascular: RRR, S1S2. No pitting edema Pulmonary: CTA bilaterally without rhonchi, rales, expiratory wheezes. No dyspnea Neurological: Alert, answering questions appropriately, cranial nerves intact, no focal findings Extremities: No gross joint deformity or swelling. Postoperative dressing in place, dry. Neurovascularly intact Skin: Warm, dry. Const: Vital Signs, click to edit/add: Vital Signs - 24 hr 07/11/24 10:58 07/11/24 11:15 07/11/24 11:20 Temperature 98.1 F Pulse Rate 72 61 62 Pulse Rate [Left P ulse Oximeter] Respiratory Rate 16 14 14 Blood Pressure 116/75 112/69 115/68 Blood Pressure [Ri ght Arm] Pulse Oximetry 95 93 93 Oxygen Delivery Me thod Room Air Nasal Cannula Nasal Cannula Oxygen Flow Rate 2 2 07/11/24 11:30 07/11/24 14:21 07/11/24 14:25 Temperature 97.4 F L Pulse Rate 64 77 73 Pulse Rate [Left P ulse Oximeter] Respiratory Rate 14 14 14 Blood Pressure 104/66 105/58 L 118/65 Blood Pressure [Ri ght Arm] Pulse Oximetry 93 88 92 Oxygen Delivery Me thod Nasal Cannula Room Air Non Rebreather Mas k Oxygen Flow Rate 2 8 07/11/24 14:30 07/11/24 14:35 07/11/24 14:40 Temperature Pulse Rate 70 67 64 Pulse Rate [Left P ulse Oximeter] Respiratory Rate 14 14 14 Blood Pressure 115/67 119/74 119/67 Blood Pressure [Ri ght Arm] Pulse Oximetry 93 94 93 Oxygen Delivery Me thod Non Rebreather Mas k Non Rebreather Mas k Non Rebreather Mas k Oxygen Flow Rate 8 8 8 07/11/24 14:45 07/11/24 14:50 07/11/24 15:00 Temperature 97 F L 96.7 F L Pulse Rate 69 65 65 Pulse Rate [Left P ulse Oximeter] Respiratory Rate 14 14 18 Blood Pressure 118/61 101/72 95/62 Blood Pressure [Ri ght Arm] Pulse Oximetry 93 91 92 Oxygen Delivery Me thod Nasal Cannula Nasal Cannula Nasal Cannula Oxygen Flow Rate 2 2 3 07/11/24 15:15 07/11/24 15:32 Temperature 96.7 F L 96.7 F L Pulse Rate 66 Pulse Rate [Left P ulse Oximeter] 65 Respiratory Rate 18 18 Blood Pressure 94/56 L Blood Pressure [Ri ght Arm] 95/62 Pulse Oximetry 93 Oxygen Delivery Me thod Nasal Cannula Nasal Cannula Oxygen Flow Rate 3 3 Assessment and Plan Assessment and plan (1) Osteoarthritis of left knee: Problem comment: -POD#0 s/p left TKA, Dr. Bailey -perioperative management including pain management and anticoagulation per Orthopedic surgery -encourage postoperative pulmonary hygiene -PT OT consults -plan to discharge home with spouse tomorrow Status: Acute (2) HOOD (obstructive sleep apnea): Problem comment: severe HOOD- sleep study 06/28 CPAP Status: Acute (3) Hypothyroidism: Problem comment: Continue levothyroxine Status: Acute (4) Hypertension: Problem comment: Hold losartan and amlodipine in setting of soft blood pressures postoperatively. Resume upon discharge Status: Acute (5) Hyperlipidemia: Problem comment: Continue statin Status: Acute (6) Insomnia: Problem comment: Trazodone as needed at bedtime Status: Acute Total Time Spent Total Time Spent: Today I spent 75 minutes seeing the patient, reviewing Expanse and EPIC notes/diagnostics, discussing the care plan with our care time that includes social work, PT/OT, pharmacy, RT, retirement and documenting my impressions and plan in the medical record.
[2024-07-11] MEDS: CEFAZOLIN 2 GM in 0.9 % SODIUM CHLORIDE Mini-bag 100 ML IVPB (18:39)
--- NOTE | 2024-07-11 19:13 | PC.NURSE ---
Patient alert and orientedx4. Post surgical pain managed effectively by PRN and scheduled medication. Patient was able to advance diet. Tolerating regular diet. Up in chair and to the bathroom with Ax1 with walker and gait belt. Patient on 2LNC. Unable to wean off O2 this shift as patient's sats drop to high to mid 80s. Encouraged patient to use IS. IS upto [phone] when patient uses it. Other vitals remain stable. Surgical site covered with dressing. Dressing clean dry and intact. Urine output adequate- Vodied 400ml.
[2024-07-11] MEDS: ROSUVASTATIN CALCIUM 10 MG TABLET 20 MG PO (20:36)
[2024-07-11] MEDS: ASPIRIN 81 MG TABLET EC PO (20:36)
[2024-07-11] MEDS: FAMOTIDINE 20 MG TABLET PO (20:36)
[2024-07-11] MEDS: SENNOSIDES 1 TAB TABLET 2 TAB PO (20:36)
[2024-07-12] MEDS: OXYCODONE 5 MG TABLET PO ×3 (00:51→11:04)
[2024-07-12 02:40] VITALS: BP 112/63; PULSE 57; RESP 18; TEMP 36.8; O2SAT 89
[2024-07-12] MEDS: CEFAZOLIN 2 GM in 0.9 % SODIUM CHLORIDE Mini-bag 100 ML IVPB (02:50)
--- NOTE | 2024-07-12 05:09 | PC.NURSE ---
Shift note: Patient is doing well ambulating with A1, walker and GB. Pain rated between 3 and 7. Icepack applied. Patient tolerated oxycodone well. Doing well with regular diet. Dressing intact, clean and dry. The spent the night in the recliner. She used CPAP which later brought in by her . Vitally stable.
[2024-07-12] MEDS: ACETAMINOPHEN 500 MG TABLET 1000 MG PO ×2 (06:04→11:04)
[2024-07-12 06:14] LABS: Hematocrit 39.2 % (33.0-51.0); Hemoglobin* 13.3 gm/dL (12.0-16.0); Immature Granulocytes Abs Auto 0.13 K/uL (0.00-0.30); Immature Granulocytes Pct Auto 1.4 %; Lymphocytes Percent Auto 7.2 % (20-44); Mean Corpuscular HGB Conc 34 gm/dL (32-36); Mean Corpuscular Hemoglobin 30 pg (26-34); Mean Corpuscular Volume 89 fL (80-100); Monocytes Percent Auto 6.6 % (0.0-11.0); Neutrophils Percent Auto 84.8 % (42.0-72.0); Platelet Count* 185 K/uL (140-440); RDW Coefficient of Variation % 12.5 % (11.5-15.5); White Blood Count* 9.57 K/uL (4.50-11.00)
[2024-07-12 06:18] LABS: Slide Review Reflex No
[2024-07-12] MEDS: LEVOTHYROXINE 50 MCG TABLET 175 MCG PO (06:23)
[2024-07-12 06:26] LABS: Potassium* 4.9 mmol/L (3.6-5.1); Sodium* 135 mmol/L (135-149)
[2024-07-12 06:29] LABS: Blood Urea Nitrogen* 20 mg/dL (7-30); Creatinine* 0.5 mg/dL (0.5-1.5); Est. Creatinine Clearance* 47.14; Estimated Glomerular Filt Rate 103 ml/min
[2024-07-12 07:00] VITALS: BP 119/67; PULSE 63; RESP 18; TEMP 37.1; O2SAT 97
[2024-07-12] MEDS: SERTRALINE 100 MG TABLET 200 MG PO (07:56)
[2024-07-12] MEDS: ASPIRIN 81 MG TABLET EC PO (07:57)
[2024-07-12] MEDS: SENNOSIDES 1 TAB TABLET 2 TAB PO (07:57)
--- NOTE | 2024-07-12 11:35 | PC.NURSE ---
The patient is pleasant and cooperative with discharge instructions. CDI to L knee dressing, the patient was sent home with all of her belongings. All questions were answered. No N/V. Korin GABRIEL BSN
--- NOTE | 2024-07-12 11:56 | PM.ORPN ---
Subjective Subjective Date Seen: 07/12/24 Principal diagnosis: Status postop day 1 left total knee arthroplasty Interval history: Patient reports doing well. No acute events over night. Pain managed with scheduled and PRN medications, ice. DVT prophylaxis: 81 mg aspirin by mouth twice daily, SCDs, walking. Denies fevers, chills, aches, N/V, CP, SOB/FAUSTIN, or lightheadedness. She is curious if she can bend her knee. Starts outpatient physical therapy this afternoon. Ortho Exam Narrative Exam Narrative: -Patient appears comfortable; no apparent acute distress -Alert and oriented times 3 -Operative knee moderately swollen; soft tissues supple; no ecchymosis; no erythematous streaking Warmth appropriate -Surgical dressing clean, dry, intact; no drainage -Bilateral calfs soft; no significant swelling, edema, tenderness, erythema, discoloration, warmth, or palpable cords -2+ DP/PT pulses, intact dermatomes and myotomes distally (5/5 strength) Const Vital Signs, click to edit/add: Vital Signs - 24 hr 07/11/24 14:21 07/11/24 14:25 07/11/24 14:30 Temperature 97.4 F L Pulse Rate 77 73 70 Pulse Rate [Left Pulse Oximeter] Respiratory Rate 14 14 14 Blood Pressure 105/58 L 118/65 115/67 Blood Pressure [Right Arm] Pulse Oximetry 88 92 93 Oxygen Delivery Method Room Air Non Rebreather Mask Non Rebreather Mask Oxygen Flow Rate 8 8 Fraction of Inspired Oxygen 07/11/24 14:35 07/11/24 14:40 07/11/24 14:45 Temperature Pulse Rate 67 64 69 Pulse Rate [Left Pulse Oximeter] Respiratory Rate 14 14 14 Blood Pressure 119/74 119/67 118/61 Blood Pressure [Right Arm] Pulse Oximetry 94 93 93 Oxygen Delivery Method Non Rebreather Mask Non Rebreather Mask Nasal Cannula Oxygen Flow Rate 8 8 2 Fraction of Inspired Oxygen 07/11/24 14:50 07/11/24 15:00 07/11/24 15:00 Temperature 97 F L 96.7 F L Pulse Rate 65 65 Pulse Rate [Left Pulse Oximeter] Respiratory Rate 14 18 Blood Pressure 101/72 95/62 Blood Pressure [Right Arm] Pulse Oximetry 91 92 92 Oxygen Delivery Method Nasal Cannula Nasal Cannula Oxygen Flow Rate 2 3 Fraction of Inspired Oxygen 07/11/24 15:00 07/11/24 15:15 07/11/24 15:32 Temperature 96.7 F L 96.7 F L Pulse Rate 66 Pulse Rate [Left Pulse Oximeter] 65 Respiratory Rate 18 18 Blood Pressure 94/56 L Blood Pressure [Right Arm] 95/62 Pulse Oximetry 92 93 Oxygen Delivery Method Nasal Cannula Nasal Cannula Nasal Cannula Oxygen Flow Rate 3 3 Fraction of Inspired Oxygen 3 07/11/24 15:32 07/11/24 15:35 07/11/24 15:45 Temperature 96.7 F L 97.8 F Pulse Rate 66 Pulse Rate [Left Pulse Oximeter] 63 Respiratory Rate 18 18 17 Blood Pressure 94/56 L Blood Pressure [Right Arm] 109/59 L Pulse Oximetry 93 93 94 Oxygen Delivery Method Nasal Cannula Nasal Cannula Nasal Cannula Oxygen Flow Rate 3 3 3 Fraction of Inspired Oxygen 07/11/24 16:00 07/11/24 16:30 07/11/24 17:00 Temperature 97.8 F 97.7 F 97.6 F Pulse Rate Pulse Rate [Left Pulse Oximeter] 63 66 76 Respiratory Rate 17 18 Blood Pressure Blood Pressure [Right Arm] 103/50 L 101/69 108/55 L Pulse Oximetry 94 93 92 Oxygen Delivery Method Nasal Cannula Nasal Cannula Nasal Cannula Oxygen Flow Rate 2 Fraction of Inspired Oxygen 2 07/11/24 18:00 07/11/24 19:00 07/11/24 20:00 Temperature 98.0 F 98.0 F 98.0 F Pulse Rate 73 70 Pulse Rate [Left Pulse Oximeter] 75 Respiratory Rate 17 18 18 Blood Pressure 116/53 L 101/59 L Blood Pressure [Right Arm] 116/53 L Pulse Oximetry 92 89 92 Oxygen Delivery Method Nasal Cannula Nasal Cannula Nasal Cannula Oxygen Flow Rate 2 2 2 Fraction of Inspired Oxygen 2 2 07/11/24 21:00 07/11/24 23:00 07/11/24 23:00 Temperature 98.0 F Pulse Rate 68 Pulse Rate [Left Pulse Oximeter] Respiratory Rate 18 18 Blood Pressure 104/62 Blood Pressure [Right Arm] Pulse Oximetry 92 92 Oxygen Delivery Method Nasal Cannula Oxygen Flow Rate 2 Fraction of Inspired Oxygen 2 07/11/24 23:00 07/11/24 23:18 07/12/24 02:40 Temperature 98.2 F 98.2 F Pulse Rate Pulse Rate [Left Pulse Oximeter] 68 57 L Respiratory Rate 18 18 18 Blood Pressure Blood Pressure [Right Arm] 117/60 112/63 Pulse Oximetry 92 92 89 Oxygen Delivery Method Nasal Cannula Nasal Cannula CPAP Oxygen Flow Rate 2 2 Fraction of Inspired Oxygen 2 2 07/12/24 07:00 07/12/24 07:00 Temperature 98.7 F Pulse Rate Pulse Rate [Left Pulse Oximeter] 63 Respiratory Rate 18 Blood Pressure Blood Pressure [Right Arm] 119/67 Pulse Oximetry 97 97 Oxygen Delivery Method Room Air Room Air Oxygen Flow Rate Fraction of Inspired Oxygen Assessment and Plan Assessment and plan (1) Osteoarthritis of left knee: Problem details: -POD#1 s/p left TKA, Dr. Bailey -perioperative management including pain management and anticoagulation per Orthopedic surgery -encourage postoperative pulmonary hygiene -PT OT consults -plan to discharge home with spouse tomorrow Status: Acute (2) HOOD (obstructive sleep apnea): Problem details: severe HOOD- sleep study 06/28 CPAP Status: Acute (3) Hypothyroidism: Problem details: Continue levothyroxine Status: Acute (4) Hypertension: Problem details: Hold losartan and amlodipine in setting of soft blood pressures postoperatively. Resume upon discharge Status: Acute (5) Hyperlipidemia: Problem details: Continue statin Status: Acute (6) Insomnia: Problem details: Trazodone as needed at bedtime Status: Acute Plan - Complete 23 hour perioperative antibiotics. - PT/OT consult for education and assistance. - Social work consult for discharge planning - Prescribed analgesics as needed - DVT prophylaxis: 81 mg aspirin by mouth twice daily, walking, and SCDs - Anticipation is for discharge to home with today 07/12/2024 if the patient remains medically stable, pain is controlled, and they are safe with mobilization.
== END 2024-07-12 11:23 | disposition home or self-care (01) ==
LOC: OR 10:16 → MEDSURG 10:16
PROVIDERS: PCP Physician Assistant Medical; Visit Provider Orthopaedic Surgery Sports Medicine
PROC: (CPT 27447; principal; 2024-07-11 11:15)
DX: M17.12 Unilateral primary osteoarthritis, left knee (principal); G89.18 Other acute postprocedural pain; I10 Essential (primary) hypertension; Z79.82 Long term (current) use of aspirin; E78.5 Hyperlipidemia, unspecified; E03.9 Hypothyroidism, unspecified; F41.9 Anxiety disorder, unspecified; F32.A Depression, unspecified; G47.33 Obstructive sleep apnea (adult) (pediatric); G47.00 Insomnia, unspecified; Z96.642 Presence of left artificial hip joint; Z96.651 Presence of right artificial knee joint
CPT/HCPCS: 27447; 01402; 36415; 64447; 64454; 73560; 76942; 82565; 84132; 84295; 84520; 85025; 97110; 97116; 97161; 97165; 97530; A9270; C1776; J0665; J0690; J1100; J2250; J2405; J2704; J3010; J7120

== ENCOUNTER 2024-10-01 13:00 | Outpatient (RCR) | payer MEDICARE, SELFPAY ==
--- NOTE | 2024-07-13 11:02 | PT.OPE ---
[facility] Out[facility] Eval Start: 07/13/24 07:56 Freq: Status: Active Protocol: Document 07/13/24 10:59 ENM (Rec: 07/13/24 11:00 ENM [id number]) E-signed By Nicole Hinojosa, DPT Physical Therapy Outpatient Evaluation Insurance Information Recert Due Date 10/11/24 Insurance Name Medicare B Medical Diagnosis presence of left artificial knee joint s/p L TKA 07/11/24 Treating Diagnosis left knee pain, muscle weakness, decreased knee ROM, impaired gait, Referring MD Kaye Subjective Subjective Patient presents to PT 2 days s/p left TKA DOS 07/11/24. Has been doing well after surgery. Rented the ice machine for home. Has had her other knee done a few years ago which went well. Would have had her left knee replaced earlier but they fell on that knee and dislocated the knee cap. Was having issues with swelling and infection after the fall then later had to have it drained. Since surgery they have been feeling some tenderness in her left hip which has been replaced . has been helping her at home. Is using 4WW a after surgery relying on locking the brakes while walking. Has an accessible [address] home. Right now pain isn't too bad since taking an oxy this morning but they feel very stiff. She is an [place] resident now. PMHx: depression, arthritis, R TKA, L TING Works in construction Pain Comments medium Date of Surgery (If 07/11/24 applicable) Current Work Status Rn Licensed Practical Occupation Works from home for [employer] Objective Other/Pertinent Knee ROM Objective L 0-6-88 R 2-0-139 strength: fair quad set able to complete SLR without assistance and ~10 degs extensor lag gait/balance: Patient ambulates with LLE hip ER, slow pace, decreased LLE weight acceptance and antalgic gait pattern. Patient tends to compensate with L hip hike to clear LE which is adding to irritation at hip swelling/observation: superior patella: L 49.5 cm R 44 cm mid patella: L 42 cm R 39 cm inf patella: L 40 cm R 37.5 cm Patient has bandaging in place with mild bruising posterior medial knee. Notable swelling in L hip and thigh Assessment Assessment/ Patient presents to PT for evaluation 2 days s/p L TKA Impression DOS 07/11/24. They have a history for previous L TING and R TKA. Since surgery they have been doing well with primary discomfort being stiffness of the knee and left hip pain. They are navigating their home environment without difficulty using 4WW for support. Pain is being well managed with icing and medication. Upon assessment patient displays decreased knee ROM, impaired gait, impaired transfers, decreased quad strength and swelling. Knee ROM measured at -6 to 88 today. They are able to complete SLR without assistance and fair quad set. Global knee swelling measurement is 3-5 cm compared to contralateral side. Gait impairments include L hip hike compensation and antalgic gait pattern. Impairments consistent with s/p TKA. Gabby would benefit from skilled PT to address impairments stated above for return to PLOF after surgery. Primary Functional all functional mobility Limitations Plan of Care Rehabilitation Good Potential Physical Therapy In 3-4 weeks: Goals 1. Patient will improve knee ROM to > 105 for improved ease of STS transfers 2.Patient will ambulate with improved mechanics and less than 3/10 knee pain with or without AD >150' for improved household mobility 3.?Patient will perform x10 SLR with improved form and strength to improve supine<>sit transfer In 6-8 weeks: 1. Patient will improve knee ROM to >120 in order to comfortably navigate stairs for household and community navigation 2. Patient will be able to walk up to 10 minutes without use of AD or report of increased knee pain? 3.?Patient will return to household and recreational activities without difficulties Coordination/ Referral Source Communication With Treatment Plan/ Ice/Cold/Vasopneumatic,Joint Mobilization,Manual Direct Interventions Therapy,Neuromuscular Re-ed,Self-Care/Home Management, Therapeutic Activities,Therapeutic Exercises Frequency/Duration 2x a week for 6-8 weeks Patient Will Be Completion of LTG(s),Independent w/HEP Discharged From Therapy Evaluation Billing Untimed Code 21 Treatment Minutes Complexity Moderate Certification Information Initial 07/13/24 Certification Date Ending Certification 10/11/24 Date Provider Signature Yes Required Provider Signature POC & Medical Necessity Shows Agreement With Physician NPI Number Write NPI# Here Physician Comment/ : Change Physician Signature Please Sign/Date Here & Date Requested
== END 2024-10-01 13:56 | disposition home or self-care (01) ==
PROVIDERS: PCP Physician Assistant Medical; Visit Provider Orthopaedic Surgery Sports Medicine
DX: Z47.1 Aftercare following joint replacement surgery (principal); Z96.652 Presence of left artificial knee joint; M70.71 Other bursitis of hip, right hip; M25.562 Pain in left knee; Z51.89 Encounter for other specified aftercare
CPT/HCPCS: 97032; 97110; 97112; 97140; 97162; J0690; J1100; J2405; J2704

== ENCOUNTER 2024-10-02 07:38 | Outpatient (CLI) | payer MEDICARE, SELFPAY | END 2024-10-02 07:39 | disposition home or self-care (01) | LOC: NFLDREF 10-04 14:13 | PROVIDERS: PCP Physician Assistant Medical; Referring Provider Physician Assistant Medical; Visit Provider Physician Assistant Medical | DX: E03.9 Hypothyroidism, unspecified (principal) | CPT/HCPCS: 84443 ==